=== PATIENT | male | born 1950 | race Caucasian/White ===

== ENCOUNTER → 2024-04-02 10:39 | Outpatient (REF) | payer OTHER, SELFPAY | LOC: RAD 10:39 | PROVIDERS: ATTENDING PHYSICIAN Internal Medicine | DX: K74.69 Other cirrhosis of liver (principal) | CPT/HCPCS: 93970 ==

== ENCOUNTER 2024-05-03 06:27 | Day surgery (SDC) | payer OTHER, SELFPAY ==
[2024-05-03 08:20] LABS: Glucose - Point of Care 106 mg/dl (70-99)
[2024-05-03 08:30] VITALS: BP 132/67
[2024-05-03 08:35] VITALS: BMI 30.9
[2024-05-03 08:36] VITALS: BMI 30.9
[2024-05-03 08:44] VITALS: BMI 30.9
[2024-05-03 09:38] VITALS: BP 118/55
[2024-05-03 09:40] VITALS: BP 118/55
[2024-05-03 09:45] VITALS: BP 119/65
[2024-05-03 10:00] VITALS: BP 103/68
[2024-05-03 10:15] VITALS: BP 123/74
== END 2024-05-03 10:35 | disposition home or self-care (01) ==
LOC: GI 06:27
PROVIDERS: ATTENDING PHYSICIAN Internal Medicine Gastroenterology
DX: K74.60 Unspecified cirrhosis of liver (principal); K76.6 Portal hypertension; K22.89 Other specified disease of esophagus; K31.89 Other diseases of stomach and duodenum; I85.10 Secondary esophageal varices without bleeding; K29.50 Unspecified chronic gastritis without bleeding
CPT/HCPCS: 43239; 88305; 82962

== ENCOUNTER → 2024-06-23 09:45 | Outpatient (REF) | payer OTHER, SELFPAY | LOC: RAD 09:45 | PROVIDERS: ATTENDING PHYSICIAN Nurse Practitioner Family | DX: I50.32 Chronic diastolic (congestive) heart failure (principal) | CPT/HCPCS: 71046 ==

== ENCOUNTER 2024-07-22 12:57 | Inpatient (IN) | payer OTHER, SELFPAY ==
[2024-07-22] VITALS (14 sets, daily range): BP systolic 109–141; BP diastolic 49–90; BMI 32.7; BMI 31.8
[2024-07-22 11:32] LABS: % Basophils 0.6 % (0-2); % Eosinophils 1.4 % (0-6); % Immature Granulocytes 0.2 % (0-0.5); % Lymphocytes 13.2 % (20.5-51.1); % Monocytes 10.7 % (1.7-9.3); % Neutrophils 73.9 % (42.2-75.2); Absolute Eosinophils 0.1 10^3/uL (0-0.7); Absolute Lymphocytes 0.6 10^3/uL (1.2-3.4); Absolute Monocytes 0.5 10^3/uL (0.1-0.6); Absolute Neutrophils 3.6 10^3/uL (1.4-6.5); Hematocrit 43.5 % (39.0-52.0); Hemoglobin 14.8 g/dL (13.0-18.0); Mean Corpuscular Volume 94.2 fL (80.0-94.0); Mean Platelet Volume 11.3 fL (7.4-10.4); Nucleated Red Blood Cells % 0 % (-); Platelet Count 114 10^3/uL (130-400); Red Blood Cell Count 4.62 10^6/uL (4.70-6.10); Red Cell Dist. Width 16.2 % (11.5-14.5); White Blood Cell Count 4.9 10^3/uL (4.8-10.8)
[2024-07-22 11:39] LABS: ALT (SGPT) 24 U/L (0-50); AST (SGOT) 49 U/L (17-59); Albumin 4.1 g/dl (3.5-5.0); Alkaline Phosphatase 138 U/L (38-126); Blood Urea Nitrogen 20 mg/dl (9-20); Calcium 9.6 mg/dl (8.4-10.2); Carbon Dioxide 32 mmol/L (22-30); Chloride 101 mmol/L (98-107); Estimated Creatinine Clearance 73 ml/min; Glucose 66 mg/dl (70-99); Potassium 3.1 mmol/L (3.5-5.1); Sodium 143 mmol/L (135-145); Total Bilirubin 3.3 mg/dl (0.2-1.3); Total Protein 6.8 g/dl (6.3-8.2); eGFR > 60.00
--- NOTE | 2024-07-22 11:44 | ED.GENMED ---
History of Present Illness
General
Chief Complaint: Swelling
Source: patient and physician
Time Seen by Provider: 07/22/24 10:35
History of Present Illness
History of Present Illness:
74-year-old male with past medical history of TIA, atrial fibrillation, hypertension, hyperlipidemia, insulin-dependent diabetes, liver cirrhosis with unknown etiology presenting to the emergency department for evaluation from primary care provider
for worsening lower extremity edema, gradually worsening shortness of breath and weight gain despite being on 60 mg of Lasix twice daily. Patient is scheduled to see cardiology in August for further evaluation is currently not following with
assistant director of residence life here. Reports echocardiogram in the past but this was at an outpatient facility and unknown last echocardiogram. Patient is denying any orthopnea or PND, chest pain, palpitations or diaphoresis. No other concerns at this time
Past History
Past History
ED Past Medical History: Arrthythmia, CVA, HTN, Hypercholesterolemia and IDDM
ED Past Surgical History: Cardiac, Orthopedic and Tonsilectomy
Social History
Tobacco: Former smoker
Alcohol: Daily
Drug: None
Personal:
Living: with family
Family History
Family History: Other
Review of Systems
Review of Systems
All Other Systems: ROS reviewed and negative except as documented in HPI and ROS
Phy Exam
Physical Exam
Physical Exam:
GENERAL: Alert , in no apparent distress
EYE: conjunctiva clear
NECK: Supple, no significant adenopathy.
ENT: o/p clr, mmm.
CARDIAC: Irregular rate and rhythm
LUNGS: Rales bilateral bases, no acute respiratory distress, no tachypnea, no accessory muscle use
NEUROLOGICAL: Alert and oriented
SKIN: Warm and dry, skin intact.
MUSCULOSKELETAL: Significant 4+ pitting edema up to the knees bilateral
PSYCH: Normal and appropriate interaction.
Scores
Heart Failure Risk
Heart Failure Risk Score: Yes
History of Stroke or TIA: Yes
History of intubation for respiratory distress: No
Heart rate on ED arrival >/= 110: No
SaO2 <90% on arrival on room air: No
HR >/=110 during 3min walk test (or too ill to perform test): Yes
ECG has acute ischemic changes: No
Urea >/=12mmol/L (BUN 33.6mg/dL): No
Serum CO2>/=35mmol/L: No
Troponin I or T elevated to [place] Level (0.4mg/dL): No
NT-proBNP >/=5,000ng/L (5,000pg/ml): No
HF Risk Score: 3
Admission Status: HIGH RISK 15.9% Consider SNF treatment or admission to hospital
Heart Score for Chest Pain Patients
STEMI patient?: Not applicable
Withdrawal Assessment of Alcohol
Withdrawal Assessment Completed?: Not applicable
Course
Orders/Labs/Results
Orders:
Orders
07/22/24 Breakfast
2000 calorie (17 carb) Diabetic
At Your Request: Full Participation
Fluid Restriction: 1200 mL/day (40 oz)
Diabetic Diet: Cholesterol Lowering
07/22/24 10:39
Electrocardiogram (*1) Urgent
Reason for Study: Fatigue / Weakness
CR Chest - 2 Views Urgent
Comment:
Reason For Exam: sob
07/22/24 10:40
EKG- Treatment ONCE
BNP [NT-proBNP] Urgent
Complete Blood Count/With Diff Urgent
Comprehensive Metabolic Panel Urgent
Magnesium Urgent
TSH Reflex To Free T4 Urgent
Comment: MAG & TSH REFLEX ADDED ON BY FLOOR 1:30PM 07-22-24
07/22/24 10:52
Urinalysis Reflex To Culture Urgent
Furosemide [Lasix] 60 mg IV NOW STA
07/22/24 11:56
Potassium Chloride [KCl] 40 meq PO NOW STA
07/22/24 11:57
Potassium Chloride [KCl] 40 meq .ROUTE .STK-MED ONE
07/22/24 12:27
Admit/Transfer Patient As Directed
Co-Sign Provider:
Level of Care: Inpatient admission
Assign to:: IVU
Physician / Group: mikaela
Diagnosis: CHF
Reason for Hospitalization: chf
Expected length of stay greater than two midnights?: Yes
ELOS- Estimated Length of Stay in days: 3
I certify the patient meets the requirements for IP care: Yes
Code Status As Directed
Resuscitation Status: Full Code
PRN Pain Medication Management As Directed
May give lesser potent ordered pain med per pt: Yes
preference::
Protocol:: Medication orders for pain may be administered in a
manner that supports deferring to patient preference
when the pt is:
- Requesting an ordered lesser potent pain medication.
Least to most potent pain medications are defined
as: acetaminophen < NSAID < tramadol < opioids
(morphine, oxycodone, hydromorphone).
- Requesting a lesser dose of the same medication IF
ORDERED.
- Requesting a less intrusive route of administration
if both routes are prescribed by the provider (PO <
IV).
07/24/24 11:00
DC Protocol for Telemetry ONCE
Abnormal Lab Results
07/22/24
10:40
RBC 4.62 L 10^6/uL
(4.70-6.10)
MCV 94.2 H fL
(80.0-94.0)
MCH 32.0 H pg
(27.0-31.0)
RDW 16.2 H %
(11.5-14.5)
Plt Count 114 L 10^3/uL
(130-400)
MPV 11.3 H fL
(7.4-10.4)
Absolute Lymphs (auto) 0.6 L 10^3/uL
(1.2-3.4)
Lymphocytes % 13.2 L %
(20.5-51.1)
Monocytes % 10.7 H %
(1.7-9.3)
Potassium 3.1 L mmol/L
(3.5-5.1)
Carbon Dioxide 32 H mmol/L
(22-30)
Glucose 66 L mg/dl
(70-99)
Total Bilirubin 3.3 H mg/dl
(0.2-1.3)
Alkaline Phosphatase 138 H U/L
(38-126)
07/22/24 10:40
07/22/24 10:40
Vital Signs
Initial and Last Documented VS:
Initial Vital Signs
Temp Pulse Resp BP Pulse Ox
97.7 F 51 18 126/64 96
07/22/24 10:10 07/22/24 10:10 07/22/24 10:10 07/22/24 10:10 07/22/24 10:10
Last Documented Vital Signs
Temp Pulse Resp BP Pulse Ox
97.7 F 62 20 117/90 96
07/22/24 10:10 07/22/24 12:15 07/22/24 12:15 07/22/24 11:00 07/22/24 12:15
MDM/Problems Addressed
Differential Diagnosis Includes:
CHF exacerbation, worsening of cirrhosis, valvular dysfunction, cardiac arrhythmia, peripheral vascular disease
MDM/Problems Addressed:
74-year-old male presenting to the emergency department for evaluation at request of PCP for anticipated admission for CHF exacerbation and further workup of worsening edema. Patient does have significant bilateral lower extremity edema, Rales
bilaterally but is in no acute respiratory distress. Labs initiated. 60 mg of Lasix IV ordered. Awaiting labs, chest x-ray and will plan for admission to hospitalist service with cardiology and GI in consult.
Chronic conditions affecting care: Arrhythmia and Other (CHF)
*Radiology
Radiology exam reviewed: preliminary read by ED provider (Bilateral pleural effusions)
*Pulse Oximetry
Patient hypoxic: no
*EKG
Interpreted by ED Provider?: Yes
Comparison EKG: no changes
Heart Rate: 65
Rate: normal
Rhythm: a-fib
QRS Pattern: left bundle branch block
*Sheet Metal Worker Apprentice Interpretation
Rate: normal
Rhythm: a-fib
*Critical Care Note
Total Time (30-74mins, 75-104mins- exclusive of procedures): Not Applicable
Data Reviewed
Review of Other/Old Records Reveals: Labs and Records
Patient Management
Discussion with other providers: Hospitalist
Escalation/DeEscalation of care consider admission/obs:
Hospitalist team notified and accepts for continued evaluation and treatment.
ED Attending Note
-
Portions of this chart may have been created with voice recognition software.� Occasional wrong word or��sound alike� substitutions may have occurred due to the inherent limitations of voice recognition software.
Discharge Plan
Departure
Patient Disposition: Admit
Date of Disposition: 07/22/24
Time of Disposition: 11:57
Presentation/result/management discussed w/ accepting MD/DO: Hospitalist
Discharge Problem:
CHF (congestive heart failure), Hypokalemia
Interventions
Interventions:
*Risk Screen - Suicide Last Done: 07/22/24 10:37
*General Assessment Last Done: 07/22/24 10:10
*Neglect/Abuse Screening Last Done: 07/22/24 10:37
*ED COVID-19 Vaccine History Last Done: 07/22/24 10:10
ED- Cardiac Assessment Last Done: 07/22/24 10:37
ED- Pulmonary Assessment Last Done: 07/22/24 10:37
ED-Skin Assessment Last Done: 07/22/24 10:37
[2024-07-22 11:47] LABS: NT-proBNP 665 pg/ml
[2024-07-22] MEDS: LASIX 60 MG IV ×2 (11:59→17:25)
[2024-07-22] MEDS: KCL 40 MEQ PO ×2 (11:59→17:25)
--- NOTE | 2024-07-22 12:02 | HPS.HSE ---
Addendum entered and electronically signed by Kraig Garcia MD 07/22/24 13:45:
Hx of a heart m for years, a.fib for ~4 yrs and significantly worsening sob and LE edema referred in by PCP. Has appt with Dr. Lowe in ~3 weeks, but symptoms were rapidly worsening
Pt seen independently and agree with SENIOR CLINICAL PROJECT MANAGER note
Lungs bibasilar rales, no wheeze
CV irreg irreg 3/6 m
Abd soft, full
Ext 4+ bilateral pretibial edema with significant stasis dermatitis
Neuro awake, alert, O x3
Imp: acute exac HF of unknown type
Type 2 IDDM
Aortic Sclerosis/stenosis
Atrial Fibrillation with freq PVC's
P: admit to IVU
consult cardio, discussed with Dr. Lorenzo
Echocardiogram
Liver US
Full Code
Original Note:
Family Physician
-
Family Physician: Saud Means
Chief Complaint
-
LE edema
sob
History of Present Illness
74-year-old male with past medical history of TIA, atrial fibrillation, hypertension, hyperlipidemia, insulin-dependent diabetes, liver cirrhosis with unknown etiology presenting to the emergency department for evaluation from primary care provider
for worsening lower extremity edema, gradually worsening shortness of breath and weight gain despite being on40mg three times day. patient been having sob worse with exertion, orthopnea for past three week. stated worsening LE edema as well as
increase in abdominal girth. his PCP bumped his Lasix 40mg bid to TID. stated dry cough. he has weight gain of 12-13 in more than two weeks. he used compression stocking as well as elevated LE with no relief in his symptoms. denied fever, chills,
runny nose, congestion. denied GODFREY,dizzy or syncopal episode. denied dysuria or hematuria. Patient is scheduled to see cardiology in August for further evaluation is currently not following with linux solaris administrator here.
received a dose of Lasix in ER. admitting for further management.
Medical History
Past Medical History
Past Medical History: Reports Other
Additional Past Medical History:
Hypertension
BPH
Type 2 diabetes
Hyperlipidemia
Oral thrush
A-fib
Pulmonary nodules
Coronary artery disease
Pulmonary hypertension
Thyrotoxicosis
Hypothyroidism
COPD
Sleep apnea
Thrombocytopenia
Diastolic CHF cirrhosis of liver
Past Surgical History: Reports Other
Additional Past Surgical History:
Spinal fusion
Left inguinal hernia repair
Laminectomy
Right total knee replacement
Cardiac ablation
Tonsillectomy
Cardioversion
Social History
Tobacco: Former Smoker
Alcohol: Occasional
Drug: None
Personal:
Living: With Family
Family History
Family History: Not pertinent
Allergies / Home Medications
Allergies reflects when Allergies were last updated in [facility].
Home Medications with original date entered in [facility]
Allergy/Medication List:
Allergies
Allergy/AdvReac Type Severity Reaction Status Date / Time
adhesive tape [Adhesive Tape] Allergy Skin Tears Verified 07/22/24 10:13
metformin Allergy Unknown Verified 07/22/24 10:13
quinidine Allergy Diarrhea Verified 07/22/24 10:13
statins Allergy Flu like Uncoded 07/22/24 10:13
symptome
Home Medications
tamsulosin 0.4 mg capsule 1 cap PO DAILY 01/18/14
xgpreqhb-vpo-jdkte acid 0.4 mg-lycopene 300 mcg-lutein 250 mcg tablet (Centrum Silver) 1 ea PO DAILY 01/19/14
Levemir Flexpen: 28 unit SC HS 05/27/18
Loratadine 10 mg PO DAILY 05/27/18
Losartan 25 mg PO BID 05/27/18
Winder-3 Fish Oil 1,200 mg Sfgl 1 tab PO DAILY 05/27/18
metoprolol succinate 25 mg tablet,extended release 24 hr 12.5 mg PO BID 05/27/18
albuterol sulfate 90 mcg/actuation aerosol inhaler (Ventolin HFA) 1 puff inhalation Q6HPRN PRN wheezing ##1 05/30/18
insulin aspart U-100 100 unit/mL (3 mL) subcutaneous pen (Novolog FlexPen U-100 Insulin aspart) 6 units SC AC ##1 05/30/18
Glucosamine Chondroitin 1 tab PO BID 05/03/24
Tylenol PM 2 tab PO HS PRN sleep 05/03/24
apixaban 5 mg tablet (Eliquis) 5 mg PO BID 05/03/24
empagliflozin 25 mg tablet (Jardiance) 12.5 mg PO DAILY 05/03/24
flaxseed 3,000 mg PO DAILY 05/03/24
furosemide 40 mg tablet (Lasix) 40 mg PO TID 05/03/24
losartan 50 mg tablet 50 mg PO DAILY 05/03/24
methocarbamol 750 mg tablet 750 mg PO Q8H PRN muscle spasms 05/03/24
Review of Systems
-
Constitutional: Reports Weight Gain
EENT: Reports No Symptoms
Respiratory: Reports Cough and Trouble Breathing
Cardiac: Reports No Symptoms
Abdomen/GI: Reports No Symptoms
: Reports No Symptoms
Musculoskeletal: Reports Edema (LE )
Skin: Reports No Symptoms
Neurological: Reports No Symptoms
Endocrine: Reports No Symptoms
Hematologic/Lymphatic: Reports No Symptoms
Psych: Reports No Symptoms
Physical Exam
Vital Signs
Vital Signs
Temp Pulse Resp BP Pulse Ox
97.7 F 52 18 126/84 97
07/22/24 10:10 07/22/24 10:45 07/22/24 10:45 07/22/24 10:39 07/22/24 10:45
Physical Exam
General: Well Developed, Well Nourished and No Apparent Distress
HEENT: NormoCephalic, Moist mucous membranes and Atraumatic
Respiratory: Rales
Cardiac: S1/S2 and Regular Rhythm; No Murmur or Rub
GI: Soft, Non Tender, Non Distended and Normal Bowel Sounds; No Organomegaly
Rectal: Deferred by Provider
Musculoskeletal: No Clubbing, No Cyanosis, No Edema and Other (3 edema LE)
Skin: No Rash
Neuro: AO x 3 and Nonfocal/grossly intact
Psych: Calm
Laboratory Results
-
07/22/24 10:40
07/22/24 10:40
Laboratory Results
Total Bilirubin 3.3 mg/dl (0.2-1.3) H 07/22/24 10:40
AST 49 U/L (17-59) 07/22/24 10:40
ALT 24 U/L (0-50) 07/22/24 10:40
Alkaline Phosphatase 138 U/L (38-126) H 07/22/24 10:40
Data Reviewed
-
Diagnostic Radiology: Report Reviewed by me
Lab Data: Labs Reviewed by me
Impression/Plan
-
# Diastolic heart failure exacerbation
-IV Lasix continued
-Received Lasix 60 in ER
-Fluid restriction
-Strict PHOEBE
-Daily weight
-Obtain echocardiogram
-Cardiology consult
-Chest x-ray with impression of Cardiomegaly with mild pulmonary edema, small-moderate left pleural effusion and minimal right pleural effusion, not significantly changed when compared with the prior study
-BNP 665
# Hypokalemia likely from fluid overload/diuretics
-K3.1
-Repleted with oral KCl
#atrial fib paroxysmal
-Heart rate stable in ER
-Eliquis continued
-Metoprolol continued
# BPH
-Flomax continued
# Type 2 diabetes
-blood sugar low in ER
-will hold Lantus, NovoLog
-Jardiance continued
-Sliding scale
-Carb controlled diet
# Essential hypertension
-Losartan continued
# DVT prophylaxis
-Eliquis
# CODE STATUS
-Full code
--- NOTE | 2024-07-22 13:35 | CON.CAR ---
Addendum entered and electronically signed by Juan Lorenzo MD 07/22/24 16:45:
74 yo male with PMH of permanent A fib on eliquis, LBBB, PVC's, DM, chronic HFPEF admitted with weight gain, edema, SOB. No chest pain. Exam with irregular rhythm, no murmurs, 3+ LE edema. Cr 1.0, K 3.1.
Will treat for acute on chronic HFPEF. Continue IV lasix. Replete K. May need to uptitrate lasix dose. Continue jardiance. Check echo.
Rhythm is A fib, slow response, frequent PVC's. Continue Toprol XL and eliquis. Trend tele.
Original Note:
Consultation
Consultation Request
Date/Time Consultation Requested: 07/22/24 1300
Date/Time Consultation Performed: 07/22/24 1320
Requesting Provider: Dr. Garcia
Performing Provider: Yumiko HEARD for Dr. Lorenzo
Reason for Consultation: CHF, arrhythmia
Medical History
-
Chief Complaint: SOB, edema, weight gain
History of Present Illness:
74 y/o male with hypertension, SUREKHA (untreated- he reports he lost weight and no longer snores), permanent AFIB on Eliquis, LBBB, TIA, BPH, liver cirrhosis, DM2, and HFpEF who is here for evaluation of several weeks of SOB, edema, and weight gain
(about 10 lbs) despite increasing lasix from 40 mg PO BID to 40 mg PO TID. He has tried to cut back on fluid intake as well. He is admitted for management of CHF exacerbation. He is in no distress at the time of my assessment. He is a previous
patient of Dr. George, but will be following with Dr. Lowe moving forward.
Past Medical History
Past Medical History: Arrhythmias, CHF, HTN, NIDDM and Other (as above)
Social History
Tobacco: Non-Smoker
Alcohol: Occasional
Family History
Family History: Other (mom had 'angina'- no other details known)
Allergies / Home Medications
Allergy/AdvReac Type Severity Reaction Status Date / Time
adhesive tape [Adhesive Tape] Allergy Skin Tears Verified 07/22/24 10:13
metformin Allergy Unknown Verified 07/22/24 10:13
quinidine Allergy Diarrhea Verified 07/22/24 10:13
statins Allergy Flu like Uncoded 07/22/24 10:13
symptome
�Medication �Instructions �Recorded �Confirmed �Type
tamsulosin 0.4 mg capsule 0.4 mg PO DAILY 01/18/14 07/22/24 History
insulin glargine 100 unit/mL 28 unit SC HS ##0 05/27/18 07/22/24 History
subcutaneous solution (Lantus
U-100 Insulin)
loratadine 10 mg tablet (Claritin) 10 mg PO DAILY ##0 05/27/18 07/22/24 History
metoprolol succinate 25 mg 25 mg PO DAILY 05/27/18 07/22/24 History
tablet,extended release 24 hr
omega-3 fatty acids 1,000 mg PO DAILY ##0 05/27/18 07/22/24 History
insulin aspart U-100 100 unit/mL 6 units SC AC ##1 05/30/18 07/22/24 Rx
(3 mL) subcutaneous pen (Novolog
FlexPen U-100 Insulin aspart)
apixaban 5 mg tablet (Eliquis) 5 mg PO BID 05/03/24 07/22/24 History
diphenhydramine 25 2 tab PO HS 05/03/24 07/22/24 History
mg-acetaminophen 500 mg tablet
(Tylenol PM Extra Strength)
empagliflozin 25 mg tablet 12.5 mg PO DAILY 05/03/24 07/22/24 History
(Jardiance)
flaxseed oil 1,000 mg capsule 3,000 mg PO DAILY 05/03/24 07/22/24 History
furosemide 40 mg tablet (Lasix) 40 mg PO TID 05/03/24 07/22/24 History
glucosamine sulfate dipotassium Cl 1 cap PO DAILY 05/03/24 07/22/24 History
500 mg-chondroitin 400 mg capsule
(Glucosamine Sulfate 2
KCL-Chondroitin)
methocarbamol 750 mg tablet 750 mg PO Q8HPRN PRN muscle spasms 05/03/24 07/22/24 History
Review of Systems
-
History Source: Patient
All other systems: Negative unless noted
Constitutional: Weight Gain
Respiratory: Trouble Breathing
Musculoskeletal: Edema
Physical Exam
Vital Signs
Temp Pulse Resp BP Pulse Ox
97.7 F 62 20 117/90 96
07/22/24 10:10 07/22/24 12:15 07/22/24 12:15 07/22/24 11:00 07/22/24 12:15
Lab Results
07/22/24 10:40
07/22/24 10:40
Kdg-H-Scqyjuvvuim Pept 665 pg/ml 07/22/24 10:40
Physical Exam
General: Well Developed, Well Nourished and No Apparent Distress
HEENT: Normocephalic and Anicteric
Respiratory: Crackles (right base) and Other (diminished left base)
Cardiac: Irregular Rhythm and Peripheral Edema (moderate BLE)
Genito-urinary: Clear Urine
Musculoskeletal: Edema (as above)
Skin: Other (LE's discolored- chronic per patient)
Neuro: AO x 3
Psych: Calm
Impression / Plan
-
Cpsyq-dr-ehetuts HFpEF:
-most recent echo report from [facility]: 02/16/24: Normal LV size, EF 50-55% mild septal dyskinesis with hypokinesis of apical septum, biatrial enlargement, mild to moderate TR, PASP 53 mmHg
-reports dry weight is 205-206 lbs and he is currently 221 in ER. Agree with IV diuresis, which requires intensive monitoring, but we need to be careful since potassium 3.1- being replaced as below.
-needs CHF education- ordered
-limit sodium/fluid
-update echo here
Hypokalemia:
-replaced in ER- will give another dose of potassium today since diuresis is ordered
AFIB: permanent
-patient has history of LBBB and bradycardia per chart, but has tolerated metoprolol at low dose- continue and follow telemetry. Will review EKG and tele with medical pathologist. Denies any dizziness/syncope. No change to chronic palps that he has had
'his whole life'.
-replace potassium, check magnesium and TSH
-continue Eliquis for OAC for [id number] score of at least 7 for age, CHF, HTN, DM, hx TIA per chart
HTN:
-monitor with diuresis
SUREKHA:
-tells me untreated since he lost weight over time and stopped snoring
-should reassess this as OP with PCP
Data Reviewed
-
EKG: Tracing Personally Visualized and interpreted (EKG with AFIB with PVC's and BBB (type unclear)- to review with medical pathologist)
Radiology: Report Reviewed by me
Medical Tests (Nuc Med, Echo etc): Report Reviewed by me (Cardiomegaly with mild pulmonary edema, small-moderate left pleural effusion and minimal right pleural effusion, not significantly changed when compared with the prior study) and Other
(stress testing March 2023- 'evidence of scar')
Labs: Labs Reviewed by me
[2024-07-22 14:05] LABS: Magnesium 2.1 mg/dl (1.6-2.3)
[2024-07-22 14:37] LABS: TSH Reflex To Free T4 0.67 uIU/ml (0.47-4.68)
[2024-07-22 15:59] LABS: Glucose - Point of Care 73 mg/dl (70-99)
[2024-07-22] MEDS: NOVOLOG FLEXPEN-LOW RESISTANCE SC (16:02)
[2024-07-22] MEDS: ELIQUIS 5 MG PO (20:44)
[2024-07-22 21:11] LABS: Glucose - Point of Care 119 mg/dl (70-99)
[2024-07-22 21:59] LABS: Urine Albumin Negative (Neg - Trace); Urine Bilirubin Negative (Negative); Urine Character Clear (Clear); Urine Color Yellow; Urine Glucose 1+ (Negative); Urine Ketone Negative (Negative); Urine Leukocyte Negative (Negative); Urine Nitrite Negative (Negative); Urine Occult Blood Negative (Negative); Urine Urobilinogen Negative (Neg - 1+)
[2024-07-22] MEDS: MAGNESIUM SULFATE 50 IV (22:06)
--- NOTE | 2024-07-22 22:31 | W.PN.UPDATE ---
Update Note
Progress Note Update
-came in to eval pt after noting polymorphic VT (Torsades) on the monitor at 9:48 pm. Pt denies any lightheadedness or CP, wasn't aware of arrhythmia. He's in bed, awake, A&O x3. Pt is in chronic afib with PVCs. Nl EF 50-55%. He is admitted for CHF,
diuresing. K was 3.1 in am and he got 40 bid KCL along with 60 iv bid of Lasix today.
-will check BMP and Mg now
-started 2 gram iv Mg
-reviewed with Dr. Lorenzo - will start Amio bolus and drip
-continue to monitor closely
[2024-07-22] MEDS: TYLENOL 1000 MG PO (22:36)
[2024-07-22] MEDS: BENADRYL 50 MG PO (22:36)
[2024-07-22 22:41] LABS: Blood Urea Nitrogen 18 mg/dl (9-20); Calcium 9.5 mg/dl (8.4-10.2); Carbon Dioxide 29 mmol/L (22-30); Chloride 101 mmol/L (98-107); Estimated Creatinine Clearance 80 ml/min; Glucose 127 mg/dl (70-99); Potassium 3.2 mmol/L (3.5-5.1); Sodium 142 mmol/L (135-145); eGFR > 60.00
[2024-07-22] MEDS: KCL 270 MEQ IV (22:59)
[2024-07-22] MEDS: CORDARONE 103 MG IV (23:01)
[2024-07-22] MEDS: CORDARONE 518 MG IV (23:19)
[2024-07-23] VITALS (13 sets, daily range): BP systolic 116–148; BP diastolic 56–79; PULSE 48–55; O2SAT 95–97; BMI 31.6
--- NOTE | 2024-07-23 03:54 | PTCARENOTE ---
44 - Rec'd pt at change of shift. Pt rec'd on TELE monitor in AFIB with HR controlled in the 60's, multifocal PVCs, and VSS. Pt AAOx3 and denied any pain or palpitations. Voiding w/out difficulty. Urine sample collected and sent to lab per order.
At 21:48 TELE monitor alarmed and rhythm showed torsades. Upon assessment pt sitting on side of bed, instructed patient to lay in bed. Patient assymptomatic and denies any dizziness or palpitations. Pt returned to controlled AFIB after brief
episode. 2L of O2 applied, and sating 97%. Kristine RABAGO notified. See Veronica RABAGO report for further information. IV amiodarone gtt currently infusing per protocol. HR in the 50-60s at rest. PA aware and instructed RN to maintain Amio gtt.
Pt agreed to report any future pain or discomfort to RN immediately. Pt resting with call hawley in reach.
[2024-07-23 05:51] LABS: Hematocrit 41.9 % (39.0-52.0); Hemoglobin 14.4 g/dL (13.0-18.0); Mean Corp Hgb Conc. 34.4 g/dL (33.0-37.0); Mean Corpuscular Hgb 32.3 pg (27.0-31.0); Mean Corpuscular Volume 93.9 fL (80.0-94.0); Mean Platelet Volume 11.2 fL (7.4-10.4); Platelet Count 107 10^3/uL (130-400); Red Blood Cell Count 4.46 10^6/uL (4.70-6.10); Red Cell Dist. Width 16.4 % (11.5-14.5); White Blood Cell Count 4.6 10^3/uL (4.8-10.8)
[2024-07-23 06:03] LABS: ALT (SGPT) 22 U/L (0-50); AST (SGOT) 43 U/L (17-59); Albumin 3.8 g/dl (3.5-5.0); Alkaline Phosphatase 155 U/L (38-126); Blood Urea Nitrogen 19 mg/dl (9-20); Calcium 9.4 mg/dl (8.4-10.2); Carbon Dioxide 29 mmol/L (22-30); Chloride 103 mmol/L (98-107); Direct Bilirubin 0.6 mg/dl (0.0-0.4); Estimated Creatinine Clearance 80 ml/min; Glucose 146 mg/dl (70-99); HDL Cholesterol 43 mg/dl; LDL Cholesterol, Calculated 54 mg/dl; Magnesium 2.4 mg/dl (1.6-2.3); Potassium 3.9 mmol/L (3.5-5.1); Sodium 144 mmol/L (135-145); Total Cholesterol 109 mg/dl (50-199); Total Protein 6.5 g/dl (6.3-8.2); Triglyceride 63 mg/dl (10-149); Very Low Density Lipoprotein 12 mg/dl (0-30); eGFR > 60.00
[2024-07-23 06:06] LABS: Glucose - Point of Care 135 mg/dl (70-99)
[2024-07-23] MEDS: NOVOLOG FLEXPEN-LOW RESISTANCE SC ×3 (06:07→16:52)
[2024-07-23 06:30] LABS: TSH Reflex To Free T4 0.57 uIU/ml (0.47-4.68)
[2024-07-23] MEDS: JARDIANCE 12.5 MG PO (08:18)
[2024-07-23] MEDS: FLOMAX 0.4 MG PO (08:18)
[2024-07-23] MEDS: ELIQUIS 5 MG PO ×2 (08:18→20:43)
[2024-07-23] MEDS: TOPROL XL 25 MG PO (08:19)
[2024-07-23] MEDS: LASIX 60 MG IV ×2 (08:19→16:19)
[2024-07-23] MEDS: FLUSH (NSS) 2 FLUSH IV ×2 (08:20→16:18)
--- NOTE | 2024-07-23 09:00 | PTCARENOTE ---
While assessing the patient I noted wheezing throughout his lungs with BB crackles. I notified the RT and asked for a Xopenex treatment. The RT in to give him his neb.
The patient has no complains of discomfort, SOB, nausea, or vomiting. NSR is noted on the monitor. His vitals are stable and 95% on RA. Heparin gtt is running at 1500 units/hr. His Amiodarone gtt is running at 16.7 ml/hr thru a rt forearm IV. No
redness or discomfort is noted at that site. His left foot dressing is c/d/i.
[2024-07-23 10:09] LABS: Glycohemoglobin (HgbA1c) 5.5 % (4.0-5.6)
[2024-07-23 10:56] LABS: Glucose - Point of Care 117 mg/dl (70-99)
--- NOTE | 2024-07-23 10:59 | W.PN.CD ---
Today's Communication / Plan
-
-
-
Add Aldactone
continue diuresis
Increase metoprolol
Watch tele carefully (recent short run of Torsades)
Consider outpatient amyloid evaluation
-
-
55 min spent caring for pt today, review chart, speak to colleagues, review tele, educate patient, prepare this document
Impression / Plan
-
Zaorm-lj-gveizvl HFpEF:
-Dry/goal weight felt to be 205-206 pounds (93-93.6 kg)
-Weight (07/23/2024) 96.9 kg. Needs more diuresis
-Needs HF education
-Already on Loop diuretic (Lasix 40 TID and Jardiance 2.5 daily at home)
-Add MRA => Aldactone, will need careful f/u of K+/BUN/Cr
-Modest fluid/Na+ restriction
-Consider outpatient Amyloid workup
NSVT and Torsades in setting of hypokalemia (3.1-3.2)
- Received IV Amio
- Stop IV Amio
- Keep K+ normal (over 4 and close to 5 would be appropriate)
- Increase Metprolol
- No syncope or presyncope. Normal LVEF. No role for ICD/EPS at this time
- Monitor with correction of electrolytes/off Amio/more BB
Hypokalemia:
-Added Aldactone for HFpEF and to help K+
-Frequent K+ checks as outpatient
Permanent AFib on chronic Eliquis, metoprolol, rate good (Afib ablations 2006 and 2013 but in AFib for almost 10 yrs now)
HTN
DM
SUREKHA
Subjective:
Feels better
Data:
Echo 07/22/2024: LVEF 50-55%, mild/mod TR, est PASP 59 mmHg, est RA 15 mmHg,
Echo ([facility]) 02/16/24: Normal LV size, EF 50-55% mild septal dyskinesis with hypokinesis of apical septum, biatrial enlargement, mild to moderate TR, PASP 53 mmHg
Physical Exam
Vital Signs/Labs
Vital Signs
Temp Pulse Resp BP Pulse Ox
97.8 F 62 16 136/67 96
07/23/24 07:01 07/23/24 08:19 07/23/24 07:01 07/23/24 07:04 07/23/24 07:01
07/22/24 07/23/24 07/24/24
06:59 06:59 06:59
Actual Weight 96.9 kg
07/23/24 05:11
07/23/24 05:11
Magnesium 2.4 mg/dl (1.6-2.3) H 07/23/24 05:11
Triglycerides 63 mg/dl (10-149) 07/23/24 05:11
LDL Cholesterol, Calc 54 mg/dl 07/23/24 05:11
VLDL Cholesterol, Calc 12 mg/dl (0-30) 07/23/24 05:11
HDL Cholesterol 43 mg/dl 07/23/24 05:11
07/22/24
10:40
Pnf-D-Hpnkkbhfzzf Pept 665
Physical Exam
Constitutional: No acute distress
EENT: Anicteric
Cardiovascular: Rhythm/rate is irregular and S1S2 is normal
Respiratory: Respiratory effort normal and Lungs clear to auscul.
GI: Soft and Distention absent
Neuro/Psych: Alert
Data Reviewed
-
Date of Service: July 23, 2024
[2024-07-23] MEDS: ALDACTONE 25 MG PO (11:22)
--- NOTE | 2024-07-23 11:58 | CM ---
Chart reviewed. Patient is independent of ADLS, lives with his in a [address], 1 [facility], ambulates with a SPC and RW. Plan is for the patient to return home. CM to follow
--- NOTE | 2024-07-23 14:03 | W.PN.HOSP.TC ---
Today's Communication/Plan
-
continue IV Lasix and medication adjustments
Assessment / Plan
Assessment / Plan
Assessment:
Acute on chronic HFpEF
- continue IV Lasix - requires intensive monitoring of I/Os, weights, lytes
- Dry/goal weight felt to be 205-206 pounds (93-93.6 kg)
- OFR/Na+ restrictions
- continue GDMT Jardiance, Aldactone, BB
- Echo: Normal biventricular size and systolic function. Estimated LVEF 50-55%. Aortic sclerosis without stenosis. Filamentous echodensity consistent with Lambl's excrescence. Mild/moderate tricuspid regurgitation. Severely elevated PASP. Estimated
pulmonary artery pressure of 59 mmHg. Assuming a right atrial pressure of 15 mmHg. Compared to echo report 02/16/24: no significant change.
Hypokalemia
- replete prn
NSVT
Brief Torsades
- s/p IV Amiodarone
- keep K>4, mag >2
- continue BB
Permanent A. Fib (hx of Ablation 2006, 2013)
- continue Eliquis/BB
Essential HTN
- continue BP meds
DM
- continue Jardiance
- holding basal/bolus regimen
- continue SSI
- A1c is 5.5%
SUREKHA
BPH - continue Flomax
DVT ppx: Eliquis
Code: Full
Anticipated Discharge: 24 - 48 hours
Subjective/Interval History
-
Date of Service: July 23, 2024
continues to improve
Objective Data
-
Labs:
Laboratory Results
07/23/24
05:11
WBC 4.6 L
Hgb 14.4
Hct 41.9
Plt Count 107 L
Sodium 144
Potassium 3.9
Chloride 103
Carbon Dioxide 29
BUN 19
Creatinine 0.9
Glucose 146 H
Calcium 9.4
Total Bilirubin 3.0 H
AST 43
ALT 22
Alkaline Phosphatase 155 H
Vital Signs:
Vital Signs
Temp Pulse Resp BP Pulse Ox
97.8 F 56 16 132/72 97
07/23/24 07:01 07/23/24 11:27 07/23/24 11:27 07/23/24 11:27 07/23/24 11:27
I&O
07/22/24 07/23/24 07/24/24
06:59 06:59 06:59
Intake Total 1040 / 1040
Output Total 2400 / 2400 650 / 650
Balance -1360 / -1360 -650 / -650
Physical Exam
-
General: No Apparent Distress
HEENT: Normocephalic and Atraumatic
Respiratory: Negative Wheezes
Cardiac: S1/S2 and Irregular Rhythm
Neuro: AO x 3
Hematologic / Lymphatic: No Lymphadenopathy
Psych: Calm
Data Reviewed
-
Total Time Spent with Patient (in minutes): 51
Labs: Labs Reviewed by me
--- NOTE | 2024-07-23 14:28 | PTCARENOTE ---
The patient's HR dropped to the high 40s while at rest. The patient has been asymptomatic, 25 mg of metoprolol given this am. His HR increases to the 50s-60s with ambulation. Notified Ilda Mireles.
[2024-07-23 16:47] LABS: Glucose - Point of Care 132 mg/dl (70-99)
[2024-07-23] MEDS: MIRALAX 17 GRAMS PO (17:54)
[2024-07-23] MEDS: SENOKOT 8.6 MG PO (20:43)
[2024-07-23 21:51] LABS: Glucose - Point of Care 121 mg/dl (70-99)
[2024-07-23] MEDS: BENADRYL 50 MG PO (21:56)
[2024-07-23] MEDS: TYLENOL 1000 MG PO (21:56)
--- NOTE | 2024-07-23 23:30 | PTCARENOTE ---
23:19 Amio gtt d/c and INT removed. Pt remained in AFib with PVCs HR 46. Pt denies any discomfort. Resting comfortable.
[2024-07-24] VITALS (7 sets, daily range): BP systolic 109–147; BP diastolic 54–76; BMI 31.2
[2024-07-24 04:27] LABS: Hematocrit 39.7 % (39.0-52.0); Hemoglobin 13.8 g/dL (13.0-18.0); Mean Corp Hgb Conc. 34.8 g/dL (33.0-37.0); Mean Corpuscular Hgb 31.7 pg (27.0-31.0); Mean Corpuscular Volume 91.3 fL (80.0-94.0); Mean Platelet Volume 10.9 fL (7.4-10.4); Platelet Count 108 10^3/uL (130-400); Red Blood Cell Count 4.35 10^6/uL (4.70-6.10); Red Cell Dist. Width 16.5 % (11.5-14.5); White Blood Cell Count 4.5 10^3/uL (4.8-10.8)
[2024-07-24 04:34] LABS: Blood Urea Nitrogen 24 mg/dl (9-20); Calcium 9.6 mg/dl (8.4-10.2); Carbon Dioxide 31 mmol/L (22-30); Chloride 102 mmol/L (98-107); Estimated Creatinine Clearance 72 ml/min; Glucose 117 mg/dl (70-99); Potassium 3.5 mmol/L (3.5-5.1); Sodium 143 mmol/L (135-145); eGFR > 60.00
--- NOTE | 2024-07-24 04:45 | PTCARENOTE ---
Pt with run of SVT 11 beats. [facility] ROUTEMAN made aware, potassium x 1 dose ordered for K 3.5
[2024-07-24 04:59] LABS: Magnesium 2.2 mg/dl (1.6-2.3)
[2024-07-24] MEDS: KCL 20 MEQ PO ×2 (05:25→21:08)
[2024-07-24 07:18] LABS: Glucose - Point of Care 109 mg/dl (70-99)
[2024-07-24] MEDS: NOVOLOG FLEXPEN-LOW RESISTANCE SC ×3 (07:18→16:34)
[2024-07-24] MEDS: FLOMAX 0.4 MG PO (08:32)
[2024-07-24] MEDS: SENOKOT PO ×3 (08:32→20:15)
[2024-07-24] MEDS: LASIX 60 MG IV ×2 (08:32→16:17)
[2024-07-24] MEDS: ALDACTONE 25 MG PO (08:32)
[2024-07-24] MEDS: MIRALAX 17 GRAMS PO (08:32)
[2024-07-24] MEDS: JARDIANCE 12.5 MG PO (08:32)
[2024-07-24] MEDS: ELIQUIS 5 MG PO ×2 (08:32→20:15)
[2024-07-24] MEDS: FLUSH (NSS) 2 FLUSH IV ×2 (08:34→16:17)
--- NOTE | 2024-07-24 08:35 | PTCARENOTE ---
HR 46, metoprolol held per order.
--- NOTE | 2024-07-24 09:36 | W.PN.CD ---
Today's Communication / Plan
-
- K supplement
- Telemetry
- If bradycardia becomes more symptomatic, will reduce BB again.
- Possible ICD on Friday
Impression / Plan
-
Mazkg-wt-hvncnjx HFpEF:
-Dry/goal weight felt to be 205-206 pounds (93-93.6 kg)
-Weight (07/24/2024) 95.8 kg. still needs more diuresis but BUN/Cr has started to rise.
-Needs HF education
-Already on Loop diuretic (Lasix 40 TID and Jardiance 2.5 daily at home)
-Started on MRA => Aldactone on 07/23, will need careful f/u of K+/BUN/Cr
-Modest fluid/Na+ restriction
-Consider outpatient Amyloid workup
NSVT and Torsades in setting of hypokalemia (3.1-3.2)
- Received IV Amio
- Still hypokalemic
- Frequent PVCs and NSVT
- Keep K+ normal (over 4 and close to 5 would be appropriate)
- Increased Metoprolol
- Significant bradycardiac now. heart rate in 40s to 50s. QTc is long.
- With bradycardia and long QT, BB may not be enough. May need atrial pacing to shorten the QTc and ICD for VT/VF treatment.
- No syncope or presyncope. Normal LVEF. No role for ICD/EPS at this time
- Monitor with correction of electrolytes/off Amio/more BB
- Evaluate over the weekend for need for ICD.
Hypokalemia:
-Added Aldactone for HFpEF and to help K+
-Frequent K+ checks as outpatient
Permanent AFib on chronic Eliquis, metoprolol, rate good (Afib ablations 2006 and 2013 but in AFib for almost 10 yrs now)
HTN
DM
SUREKHA
Subjective:
fatigued and dyspnea on exertion. denies any chest pain.
Data:
Echo 07/22/2024: LVEF 50-55%, mild/mod TR, est PASP 59 mmHg, est RA 15 mmHg,
Echo ([facility]) 02/16/24: Normal LV size, EF 50-55% mild septal dyskinesis with hypokinesis of apical septum, biatrial enlargement, mild to moderate TR, PASP 53 mmHg
Physical Exam
Vital Signs/Labs
Vital Signs
Temp Pulse Resp BP Pulse Ox
97.9 F 46 18 128/60 98
07/24/24 07:14 07/24/24 08:34 07/24/24 07:14 07/24/24 07:15 07/24/24 07:14
07/23/24 07/24/24 07/25/24
06:59 06:59 06:59
Actual Weight 96.9 kg 95.8 kg
07/24/24 03:50
07/24/24 03:50
Magnesium 2.2 mg/dl (1.6-2.3) 07/24/24 03:50
Triglycerides 63 mg/dl (10-149) 07/23/24 05:11
LDL Cholesterol, Calc 54 mg/dl 07/23/24 05:11
VLDL Cholesterol, Calc 12 mg/dl (0-30) 07/23/24 05:11
HDL Cholesterol 43 mg/dl 07/23/24 05:11
07/22/24
10:40
Men-G-Smxgwbkwwbb Pept 665
Physical Exam
Constitutional: No acute distress and Comfortable
EENT: Anicteric and Moist mucous membranes
Cardiovascular: Rhythm/rate is irregular (sinus rafi with frequent PVCs and NSVT) and Systolic murmur present
Respiratory: Respiratory effort normal, Wheeze Absent and Crackles Absent
GI: Soft, Distention absent and Non tender
Neuro/Psych: Alert, Oriented and AO x 3
Data Reviewed
-
Date of Service: July 24, 2024
Medical Decision Making: Reviewed Test Results and Independent Historian Assessment
EKG: Tracing Personally Visualized and interpreted
Echo: Report Reviewed by me
X-Ray/CT/US/MRI/NUC/PET: Image Personally Visualized and interpreted
Labs: Labs Reviewed by me
Old Records: Reviewed
[2024-07-24] MEDS: KCL 40 MEQ PO (12:07)
--- NOTE | 2024-07-24 12:28 | W.PN.HOSP.TC ---
Today's Communication/Plan
-
may need to consider ICD if ectopy continues
continue current meds
continue IV Lasix
Assessment / Plan
Assessment / Plan
Assessment:
Acute on chronic HFpEF
- continue IV Lasix - requires intensive monitoring of I/Os, weights, lytes
- Dry/goal weight felt to be 205-206 pounds (93-93.6 kg)
- OFR/Na+ restrictions
- continue GDMT Jardiance, Aldactone, BB
- Echo: Normal biventricular size and systolic function. Estimated LVEF 50-55%. Aortic sclerosis without stenosis. Filamentous echodensity consistent with Lambl's excrescence. Mild/moderate tricuspid regurgitation. Severely elevated PASP. Estimated
pulmonary artery pressure of 59 mmHg. Assuming a right atrial pressure of 15 mmHg. Compared to echo report 02/16/24: no significant change.
Hypokalemia
- replete prn
NSVT
Brief Torsades in setting of hypokalemia
- tele with ongoing PVCs and NSVT
- s/p IV Amiodarone
- keep K>4, mag >2
- continue BB
- may need to consider ICD
Permanent A. Fib (hx of Ablation 2006, 2013)
- continue Eliquis/BB
Essential HTN
- continue BP meds
DM
- continue Jardiance
- holding basal/bolus regimen
- continue SSI
- A1c is 5.5%
SUREKHA
BPH - continue Flomax
DVT ppx: Eliquis
Code: Full
Anticipated Discharge: 24 - 48 hours
Subjective/Interval History
-
Date of Service: July 24, 2024
remains SOB with exertion
weight improving
no CP
Objective Data
-
Labs:
Laboratory Results
08/24/24
03:50
WBC 4.5 L
Hgb 13.8
Hct 39.7
Plt Count 108 L
Sodium 143
Potassium 3.5
Chloride 102
Carbon Dioxide 31 H
BUN 24 H
Creatinine 1.0
Glucose 117 H
Calcium 9.6
Vital Signs:
Vital Signs
Temp Pulse Resp BP Pulse Ox
97.4 F 50 18 109/76 93
07/24/24 11:12 07/24/24 11:11 07/24/24 11:12 07/24/24 11:11 07/24/24 11:12
I&O
07/23/24 07/24/24 07/25/24
06:59 06:59 06:59
Intake Total 1040 / 1040 674 / 674 480 / 480
Output Total 2400 / 2400 1800 / 1800 650 / 650
Balance -1360 / -1360 -1126 / -1126 -170 / -170
Physical Exam
-
General: No Apparent Distress
HEENT: Normocephalic and Atraumatic
Respiratory: Negative Wheezes
Cardiac: Regular Rhythm and S1/S2
GI: Soft
Genito-urinary: No Costovertebral Tender
Musculoskeletal: No Edema
Neuro: AO x 3
Hematologic / Lymphatic: No Lymphadenopathy
Psych: Calm
Data Reviewed
-
Total Time Spent with Patient (in minutes): 51
Labs: Labs Reviewed by me
[2024-07-24 12:34] LABS: Glucose - Point of Care 112 mg/dl (70-99)
--- NOTE | 2024-07-24 16:25 | PTCARENOTE ---
The patient has 3 loose BMs since taking Miralax and Senokot today. He stated that he does not want any more laxatives.
[2024-07-24 16:30] LABS: Glucose - Point of Care 93 mg/dl (70-99)
--- NOTE | 2024-07-24 18:36 | PTCARENOTE ---
The patient has been oob all shift. He walked in the halls multiple times. His vital signs have been stable. Afib with a SVR has been noted on the monitor, Frequent PVC noted in addition to bigeminy. He remains asymptomatic.
[2024-07-24 20:35] LABS: Blood Urea Nitrogen 23 mg/dl (9-20); Calcium 9.4 mg/dl (8.4-10.2); Carbon Dioxide 33 mmol/L (22-30); Chloride 99 mmol/L (98-107); Estimated Creatinine Clearance 65 ml/min; Glucose 166 mg/dl (70-99); Potassium 3.5 mmol/L (3.5-5.1); Sodium 142 mmol/L (135-145); eGFR > 60.00
[2024-07-24 21:04] LABS: Glucose - Point of Care 164 mg/dl (70-99)
[2024-07-24] MEDS: TYLENOL 1000 MG PO (22:16)
[2024-07-24] MEDS: BENADRYL 50 MG PO (22:16)
[2024-07-25] VITALS (8 sets, daily range): BP systolic 115–138; BP diastolic 56–82; BMI 30.3
--- NOTE | 2024-07-25 00:47 | PTCARENOTE ---
Potassium from 1999 BMP 3.5; pt. remains in A-fib 50's-60's with frequent PVC's. Hospitalist ORQUIDEA Purcell notified, order for KCL 20 mEq PO obtained and administered. Otherwise pt. has no complaints, RA pulse ox 94% with some RODRIGUEZ assessed but pt.
recovers quickly; lungs diminished. Voiding clear yellow urine without difficulty. Pt. currently sleeping.
[2024-07-25 05:04] LABS: Hematocrit 40.7 % (39.0-52.0); Mean Corp Hgb Conc. 34.4 g/dL (33.0-37.0); Mean Corpuscular Hgb 32.4 pg (27.0-31.0); Mean Corpuscular Volume 94.2 fL (80.0-94.0); Mean Platelet Volume 10.7 fL (7.4-10.4); Platelet Count 102 10^3/uL (130-400); Red Blood Cell Count 4.32 10^6/uL (4.70-6.10); Red Cell Dist. Width 16.2 % (11.5-14.5)
[2024-07-25 05:48] LABS: Blood Urea Nitrogen 23 mg/dl (9-20); Calcium 9.5 mg/dl (8.4-10.2); Carbon Dioxide 30 mmol/L (22-30); Chloride 103 mmol/L (98-107); Estimated Creatinine Clearance 71 ml/min; Glucose 113 mg/dl (70-99); Magnesium 2.1 mg/dl (1.6-2.3); Potassium 3.9 mmol/L (3.5-5.1); Sodium 143 mmol/L (135-145); eGFR > 60.00
[2024-07-25 07:13] LABS: Glucose - Point of Care 115 mg/dl (70-99)
[2024-07-25] MEDS: NOVOLOG FLEXPEN-LOW RESISTANCE SC ×3 (07:28→17:39)
[2024-07-25] MEDS: JARDIANCE 12.5 MG PO (07:58)
[2024-07-25] MEDS: FLOMAX 0.4 MG PO (07:58)
[2024-07-25] MEDS: ELIQUIS 5 MG PO ×2 (07:59→20:44)
[2024-07-25] MEDS: ALDACTONE 25 MG PO (07:59)
[2024-07-25] MEDS: SENOKOT PO ×3 (08:00→20:46)
[2024-07-25] MEDS: MIRALAX PO (08:00)
--- NOTE | 2024-07-25 08:03 | PTCARENOTE ---
Metoprol held this morning due to HR parameters. HR 55.
--- NOTE | 2024-07-25 08:27 | W.PN.CD ---
Today's Communication / Plan
-
-N.p.o. after midnight
-Dual-chamber ICD tomorrow
Impression / Plan
-
Fzgvl-ng-endgbyt HFpEF:
-Dry/goal weight felt to be 205-206 pounds (93-93.6 kg)
-Weight (07/24/2024) 95.8 kg. still needs more diuresis but BUN/Cr has started to rise.
-Needs HF education
-Already on Loop diuretic (Lasix 40 TID and Jardiance 2.5 daily at home)
-Started on MRA => Aldactone on 07/23, will need careful f/u of K+/BUN/Cr
-Modest fluid/Na+ restriction
-Consider outpatient Amyloid workup
NSVT and Torsades in setting of hypokalemia (3.1-3.2)
- Received IV Amio
- K is better with continued severe bradycardia, frequent PVCs and nonsustained VT.
- Frequent PVCs and NSVT
- Keep K+ normal (over 4 and close to 5 would be appropriate)
- Increased Metoprolol
- Significant bradycardiac now. heart rate in 40s to 50s. QTc is long.
- With bradycardia and long QT, BB may not be enough. May need atrial pacing to shorten the QTc and ICD for VT/VF treatment.
- No syncope or presyncope. Normal LVEF. No role for ICD/EPS at this time
- Monitor with correction of electrolytes/off Amio/more BB
- Will need dual chamber ICD.
Hypokalemia:
-Added Aldactone for HFpEF and to help K+
-Frequent K+ checks as outpatient
Permanent AFib on chronic Eliquis, metoprolol, rate good (Afib ablations 2006 and 2013 but in AFib for almost 10 yrs now)
HTN
DM
SUREKHA
Subjective:
fatigued and dyspnea on exertion. denies any chest pain. Agreeable and wants to proceed and get ICD in place
Data:
Echo 07/22/2024: LVEF 50-55%, mild/mod TR, est PASP 59 mmHg, est RA 15 mmHg,
Echo ([facility]) 02/16/24: Normal LV size, EF 50-55% mild septal dyskinesis with hypokinesis of apical septum, biatrial enlargement, mild to moderate TR, PASP 53 mmHg
Physical Exam
Vital Signs/Labs
Vital Signs
Temp Pulse Resp BP Pulse Ox
97.8 F 55 18 123/56 98
07/25/24 07:40 07/25/24 07:59 07/25/24 07:40 07/25/24 07:40 07/25/24 07:40
07/24/24 07/25/24 07/26/24
06:59 06:59 06:59
Actual Weight 95.8 kg 93.1 kg
07/25/24 04:33
07/25/24 04:33
Magnesium 2.1 mg/dl (1.6-2.3) 07/25/24 04:33
Triglycerides 63 mg/dl (10-149) 07/23/24 05:11
LDL Cholesterol, Calc 54 mg/dl 07/23/24 05:11
VLDL Cholesterol, Calc 12 mg/dl (0-30) 07/23/24 05:11
HDL Cholesterol 43 mg/dl 07/23/24 05:11
07/22/24
10:40
Zqe-A-Enpuzzuwobm Pept 665
Physical Exam
Constitutional: No acute distress and Comfortable
EENT: Anicteric and Moist mucous membranes
Cardiovascular: Rhythm/rate is irregular, Pedal edema present, JVD present and Systolic murmur present
Respiratory: Respiratory effort normal and Crackles Present
GI: Soft, Distention absent, Non tender and Normal bowel sounds
Neuro/Psych: Alert, Oriented and AO x 3
Data Reviewed
-
Date of Service: July 25, 2024
Medical Decision Making: Reviewed Test Results, Independent Historian Assessment, Test Interpretation and Review of Case with other Provider
EKG: Tracing Personally Visualized and interpreted
Echo: Report Reviewed by me
Labs: Labs Reviewed by me
Old Records: Reviewed
[2024-07-25] MEDS: LASIX IV (09:15)
[2024-07-25 12:59] LABS: Glucose - Point of Care 100 mg/dl (70-99)
--- NOTE | 2024-07-25 13:12 | W.PN.HOSP.TC ---
Today's Communication/Plan
-
NPO p MN for ICD placement
holding Lasix per Cardiology
Assessment / Plan
Assessment / Plan
Assessment:
Acute on chronic HFpEF
- IV Lasix held for today by Cardiology
- Dry/goal weight felt to be 205-206 pounds (93-93.6 kg)
- OFR/Na+ restrictions
- continue GDMT Jardiance, Aldactone, BB
- Echo: Normal biventricular size and systolic function. Estimated LVEF 50-55%. Aortic sclerosis without stenosis. Filamentous echodensity consistent with Lambl's excrescence. Mild/moderate tricuspid regurgitation. Severely elevated PASP. Estimated
pulmonary artery pressure of 59 mmHg. Assuming a right atrial pressure of 15 mmHg. Compared to echo report 02/16/24: no significant change.
Hypokalemia
- replete prn
NSVT
Brief Torsades in setting of hypokalemia
- tele with ongoing PVCs and NSVT
- s/p IV Amiodarone
- keep K>4, mag >2
- continue BB
- dual chambed ICD planned 07/26
Permanent A. Fib (hx of Ablation 2006, 2013)
- continue Eliquis/BB
Essential HTN
- continue BP meds
DM
- continue Jardiance
- holding basal/bolus regimen
- continue SSI
- A1c is 5.5%
SUREKHA
BPH - continue Flomax
DVT ppx: Eliquis
Code: Full
Anticipated Discharge: > 48 hours
Subjective/Interval History
-
Date of Service: July 25, 2024
denies any new complaints
Objective Data
-
Labs:
Laboratory Results
07/25/24
04:33
WBC 4.0 L
Hgb 14.0
Hct 40.7
Plt Count 102 L
Sodium 143
Potassium 3.9
Chloride 103
Carbon Dioxide 30
BUN 23 H
Creatinine 1.0
Glucose 113 H
Calcium 9.5
Vital Signs:
Vital Signs
Temp Pulse Resp BP Pulse Ox
97.2 F 53 20 138/61 98
07/25/24 11:44 07/25/24 12:00 07/25/24 11:44 07/25/24 11:46 07/25/24 11:44
I&O
07/24/24 07/25/24 07/26/24
06:59 06:59 06:59
Intake Total 674 / 674 1320 / 1320 360 / 360
Output Total 1800 / 1800 2450 / 2450 450 / 450
Balance -1126 / -1126 -1130 / -1130 -90 / -90
Physical Exam
-
General: No Apparent Distress
HEENT: Normocephalic and Atraumatic
Respiratory: Negative Wheezes
Cardiac: Regular Rhythm and S1/S2
GI: Soft
Neuro: AO x 3
Psych: Calm
Data Reviewed
-
Total Time Spent with Patient (in minutes): 42
Labs: Labs Reviewed by me
[2024-07-25 17:13] LABS: Glucose - Point of Care 139 mg/dl (70-99)
[2024-07-25 21:29] LABS: Glucose - Point of Care 169 mg/dl (70-99)
[2024-07-25] MEDS: TYLENOL 1000 MG PO (21:54)
[2024-07-25] MEDS: BENADRYL 50 MG PO (21:54)
[2024-07-26] VITALS (13 sets, daily range): BP systolic 102–132; BP diastolic 54–95; BMI 30.6
--- NOTE | 2024-07-26 02:08 | PTCARENOTE ---
Rec'd pt at 1900 on TELE monitor with pt in AFIB w/ BBB and frequent PVCs with HR controlled in the 60's and vital signs stable (see flowchart). Pt AAOx3 and denies any pain or discomfort. Pt agreed to report any change in pain or discomfort to RN
immediately. Patient aware to remain NPO status for planned AICD placement in AM. Pt resting with call hawley in reach.
[2024-07-26 02:57] LABS: Hematocrit 40.8 % (39.0-52.0); Hemoglobin 13.8 g/dL (13.0-18.0); Mean Corp Hgb Conc. 33.8 g/dL (33.0-37.0); Mean Corpuscular Volume 94.7 fL (80.0-94.0); Mean Platelet Volume 10.7 fL (7.4-10.4); Platelet Count 97 10^3/uL (130-400); Red Blood Cell Count 4.31 10^6/uL (4.70-6.10); Red Cell Dist. Width 16.1 % (11.5-14.5); White Blood Cell Count 4.2 10^3/uL (4.8-10.8)
[2024-07-26 03:07] LABS: Blood Urea Nitrogen 22 mg/dl (9-20); Calcium 9.7 mg/dl (8.4-10.2); Carbon Dioxide 30 mmol/L (22-30); Chloride 103 mmol/L (98-107); Estimated Creatinine Clearance 71 ml/min; Glucose 156 mg/dl (70-99); Potassium 3.8 mmol/L (3.5-5.1); Sodium 142 mmol/L (135-145); eGFR > 60.00
[2024-07-26 06:04] LABS: Glucose - Point of Care 123 mg/dl (70-99)
[2024-07-26] MEDS: NOVOLOG FLEXPEN-LOW RESISTANCE SC ×3 (06:19→17:14)
[2024-07-26] MEDS: JARDIANCE 12.5 MG PO (08:49)
[2024-07-26] MEDS: FLOMAX 0.4 MG PO (08:49)
[2024-07-26] MEDS: ELIQUIS PO (08:49)
[2024-07-26] MEDS: MIRALAX PO (08:50)
[2024-07-26] MEDS: ALDACTONE 25 MG PO (08:50)
[2024-07-26] MEDS: SENOKOT PO ×2 (08:50→19:50)
[2024-07-26] MEDS: FLUSH (NSS) 2 FLUSH IV (08:51)
--- NOTE | 2024-07-26 10:11 | W.PN.HOSP.TC ---
Today's Communication/Plan
-
IV potassium to keep >4
dual chamber ICD planned today
Assessment / Plan
Assessment / Plan
Assessment:
Acute on chronic HFpEF
- IV Lasix on hold per Cardiology
- Dry/goal weight felt to be 205-206 pounds (93-93.6 kg)
- OFR/Na+ restrictions
- continue GDMT Jardiance, Aldactone, BB
- Echo: Normal biventricular size and systolic function. Estimated LVEF 50-55%. Aortic sclerosis without stenosis. Filamentous echodensity consistent with Lambl's excrescence. Mild/moderate tricuspid regurgitation. Severely elevated PASP. Estimated
pulmonary artery pressure of 59 mmHg. Assuming a right atrial pressure of 15 mmHg. Compared to echo report 02/16/24: no significant change.
Hypokalemia
- replete prn
NSVT
Brief Torsades in setting of hypokalemia
- tele with ongoing PVCs and NSVT
- s/p IV Amiodarone
- keep K>4, mag >2
- continue BB
- dual chamber ICD planned today
Permanent A. Fib (hx of Ablation 2006, 2013)
- continue Eliquis/BB
Essential HTN
- continue BP meds
DM
- continue Jardiance
- holding basal/bolus regimen
- continue SSI
- A1c is 5.5%
SUREKHA
BPH - continue Flomax
DVT ppx: Eliquis
Code: Full
Anticipated Discharge: 24 - 48 hours
Subjective/Interval History
-
Date of Service: July 26, 2024
denies any new complaints at present
for ICD placement today
Objective Data
-
Labs:
Laboratory Results
07/26/24
02:40
WBC 4.2 L
Hgb 13.8
Hct 40.8
Plt Count 97 L
Sodium 142
Potassium 3.8
Chloride 103
Carbon Dioxide 30
BUN 22 H
Creatinine 1.0
Glucose 156 H
Calcium 9.7
Vital Signs:
Vital Signs
Temp Pulse Resp BP Pulse Ox
97.6 F 57 16 132/66 93
07/26/24 07:13 07/26/24 08:50 07/26/24 07:13 07/26/24 07:17 07/26/24 07:13
I&O
07/25/24 07/26/24 07/27/24
06:59 06:59 06:59
Intake Total 1320 / 1320 1300 / 1300
Output Total 2450 / 2450 750 / 750
Balance -1130 / -1130 550 / 550
Physical Exam
-
General: No Apparent Distress
HEENT: Normocephalic and Atraumatic
Respiratory: Negative Wheezes
Cardiac: Regular Rhythm and S1/S2
GI: Soft
Genito-urinary: No Costovertebral Tender
Neuro: AO x 3
Psych: Calm
Data Reviewed
-
Total Time Spent with Patient (in minutes): 42
Labs: Labs Reviewed by me
[2024-07-26] MEDS: KCL 270 MEQ IV (11:33)
[2024-07-26] MEDS: FLUSH (NSS) 1 FLUSH IV (11:34)
[2024-07-26 11:51] LABS: Glucose - Point of Care 102 mg/dl (70-99)
--- NOTE | 2024-07-26 12:57 | W.ICD.CONTRA ---
Post ICD/WEIGHT CHECKER-D
-
History of AL?: No
LV Function
Left ventricular function study result?: Ejection Fraction >/= 40%
ACEI/ARB/ARNI
Patient already on ACEI/ARB/ARNI: No
ACEI/ARB/ARNI Not Indicated: Left Ventricular EF >/= 40%
Beta-Ching
Patient already on Beta Ching: Yes
--- NOTE | 2024-07-26 13:00 | CM ---
Chart reviewed. Patient is independent of ADLS, lives with his in a [address], [address] [facility], ambulates with a SPC and RW. Patient waiting for his ICD. Plan is for the patient to return home. CM to follow
--- NOTE | 2024-07-26 14:06 | W.PN.CD ---
Today's Communication / Plan
-
- Dual chamber ICD this AM
Impression / Plan
-
Cngjw-li-bghsbey HFpEF:
-Dry/goal weight felt to be 205-206 pounds (93-93.6 kg)
-Weight (07/24/2024) 95.8 kg. still needs more diuresis but BUN/Cr has started to rise.
-Needs HF education
-Already on Loop diuretic (Lasix 40 TID and Jardiance 2.5 daily at home)
-Started on MRA => Aldactone on 07/23, will need careful f/u of K+/BUN/Cr
-Modest fluid/Na+ restriction
-Consider outpatient Amyloid workup
NSVT and Torsades in setting of hypokalemia (3.1-3.2)
- Received IV Amio
- K is better with continued severe bradycardia, frequent PVCs and nonsustained VT.
- Frequent PVCs and NSVT
- Keep K+ normal (over 4 and close to 5 would be appropriate)
- Increased Metoprolol
- Significant bradycardiac now. heart rate in 40s to 50s. QTc is long.
- With bradycardia and long QT, BB may not be enough. May need atrial pacing to shorten the QTc and ICD for VT/VF treatment.
- No syncope or presyncope. Normal LVEF. No role for ICD/EPS at this time
- Monitor with correction of electrolytes/off Amio/more BB
- Will need dual chamber ICD. - plan for today
Hypokalemia:
-Added Aldactone for HFpEF and to help K+
-Frequent K+ checks as outpatient
Permanent AFib on chronic Eliquis, metoprolol, rate good (Afib ablations 2006 and 2013 but in AFib for almost 10 yrs now)
- Held Eliquis this AM for ICD implant.
HTN
DM
SUREKHA
Subjective:
fatigued and dyspnea on exertion. denies any chest pain. Agreeable and wants to proceed and get ICD in place
Data:
Echo 07/22/2024: LVEF 50-55%, mild/mod TR, est PASP 59 mmHg, est RA 15 mmHg,
Echo ([facility]) 02/16/24: Normal LV size, EF 50-55% mild septal dyskinesis with hypokinesis of apical septum, biatrial enlargement, mild to moderate TR, PASP 53 mmHg
Physical Exam
Vital Signs/Labs
Vital Signs
Temp Pulse Resp BP Pulse Ox
97.7 F 58 16 131/58 94
07/26/24 11:07 07/26/24 12:00 07/26/24 11:07 07/26/24 11:05 07/26/24 11:07
07/25/24 07/26/24 07/27/24
06:59 06:59 06:59
Actual Weight 93.1 kg 94 kg
07/26/24 02:40
07/26/24 02:40
Magnesium 2.1 mg/dl (1.6-2.3) 07/25/24 04:33
Triglycerides 63 mg/dl (10-149) 07/23/24 05:11
LDL Cholesterol, Calc 54 mg/dl 07/23/24 05:11
VLDL Cholesterol, Calc 12 mg/dl (0-30) 07/23/24 05:11
HDL Cholesterol 43 mg/dl 07/23/24 05:11
07/22/24
10:40
Pzz-B-Zfvygocbkam Pept 665
Physical Exam
Constitutional: No acute distress and Comfortable
EENT: Anicteric and Moist mucous membranes
Cardiovascular: Pedal edema is absent, JVD pressure is normal and Rhythm/rate is irregular
Respiratory: Respiratory effort normal, Lungs clear to auscul. and Wheeze Absent
GI: Soft, Non tender and Normal bowel sounds
Neuro/Psych: Alert, Oriented and AO x 3
Other: Cath Site
Data Reviewed
-
Date of Service: July 26, 2024
Medical Decision Making: Reviewed Test Results, Independent Historian Assessment and Test Interpretation
EKG: Tracing Personally Visualized and interpreted
Echo: Report Reviewed by me
Labs: Labs Reviewed by me
Old Records: Reviewed
--- NOTE | 2024-07-26 17:07 | ITS.CL.ICD ---
Shading Painter - ICD
Implantable Cardioverter Defibrillator
Procedure Report:
BiV ICD
COPY MANAGER-D with Bi-Ventricular Implantable Cardiac Defibrillator (BiV-ICD) Placement:
Mr. Godinez is a 74-year-old gentleman with chronic heart failure with preserved ejection fraction who has been hospitalized with acute decompensated with fluid overload with NYHA class III, and is noted to have sustained ventricular tachycardia and
monomorphic along with polymorphic arrhythmias. �Patient had been treated with potassium and magnesium but remained severely bradycardic with significant amount of nonsustained VT despite being on adequate antiarrhythmics and electrolytes. Patient
also has long QT and significantly bradycardic requiring pacing to shorten the QT despite normalized electrolytes.�
Given the ventricular arrhythmias, patient will be paced significantly and is in need for defibrillator for his ventricular arrhythmias/tachycardia both VT and V-fib and is recommended a cardiac resynchronization therapy with defibrillator (COPY MANAGER-D).
Patient has permanent atrial fibrillation and will not place atrial lead.
Indications:
Severe bradycardia, long QT interval, monomorphic and polymorphic VT,
Date of the Procedure: 07/26/2024
Pre-Operative Diagnosis: Severe bradycardia, permanent atrial fibrillation, ventricular tachycardia/ventricular fibrillation
Post-Operative Diagnosis: Severe bradycardia, permanent atrial fibrillation, ventricular tachycardia/ventricular fibrillation
Procedure Performed: COPY MANAGER-D with BIVENTRICULAR IMPLANTABLE DEFIBRILLATOR IMPLANTATION
Performing Physician:
Scar White MD
Anesthesia:
See anesthesia records
Detailed Description of the Procedure:
The patient was identified using hospital identification and informed consent obtained for the procedure. The risks were explained to the patient and the family including, but not limited to: Bleeding, infection, arrhythmia, stroke,
vascular/cardiac/lung puncture, surgery, pacemaker dependency/device malfunction. All questions were answered.
A surgical pause was performed in accordance with hospital regulations. Anesthesia service provided sedation as reported separately. Antibiotics administered IV for risk of bacterial colonization. After obtaining informed and written consent, the
patient was brought to the electrophysiology laboratory.
A timeout was performed immediately before the procedure. The left chest was prepped from the nipple to the angle of the jaw with chlorhexidine, and draped following sterile technique in usual routine.�
The procedure site was meticulously prepared with surgical scrub and allowed to dry with no pooling. Sterile draping was applied to cover the procedure site. The image intensifier was draped with sterile bag and positioned over the patient.
The left infra-clavicular region was prepped and draped in the usual sterile fashion. Local anesthesia was administered subcutaneously using 1% lidocaine / Bupivacaine. The left cephalic vein cut-down was performed with an incision at the
delto-pectoral groove, and vascular sheaths were introduced for lead access. These were advanced into the right ventricle and the right atrium.
The right ventricular lead was secured in position with an active fixation technique at the apical septal location.
There was excellent sensing, pacing, and impedance from the lead, with no diaphragmatic stimulation at 10 V output.�Bovie cautery, antibiotics, and fluoroscopy were used.
Attention turned to the coronary sinus. The guide wire was advanced to the IVC and a long hemostatic multipurpose peel away sheath was advanced to the RA.
The CS was cannulated using radiofocus glidewire. The sheath was advanced over the guidewire across the bend into the CS. The glidewire was placed into the CS and coronary sinus venography was obtained with a balloon catheter in the CS. CS anatomy
revealed a lateral branch vein.
A long active fixation quad LV lead was used and advanced into the postero-lateral br over the BMW wire with anticlock movement. Once adequate location achieved the LV lead was deployed by clock monzon turns. Once adequate fixation achieved, the push
and pull test was done and lead location was confirmed.
During pacing, QRS complex was favorable, with a QS in lateral leads and RBBB configuration during LV pacing. It was deemed ideal for biventricular pacing. Diaphragmatic stimulation was not present with high output pacing here. The long guiding
sheath was removed from the vein and then from the body without change in lead position, impedance, sensing, or capture.
The leads were sutured to the underlying pectoralis fascia with 2-0 Ethibond stitches.
�
Some oozing was seen at access sites. This was managed with manual pressure and a loose pursestring suture.�
The leads were attached to the pulse generator in standard configuration with acceptable sensing and threshold parameters.
Atrial plug was placed in the atrial slot.
The pocket was irrigated with antibiotic solution; the pocket was inspected with no active bleeding noted. The device and the leads were placed in the pocket.
D-stat was placed in the pocket due to aggressive DAPT.
A Surgiflo with Thrombin was injected into the device around the lead and the device at the insertion site.
A Tyrx pouch was placed around the device and the leads.
Deep subcutaneous tissues were closed with 2-0 VLoc sutures; intermediate subcutaneous tissue was reopposed using a running 2-0 V loc suture, and the dermis was reopposed using a running 4-0 V loc subcuticular suture. Sponge counts / sharp counts
were appropriate.
Procedure End:
The procedure was tolerated well. Aquacel bandaged was applied. A pressure dressing was applied.
Estimated Blood loss:
10 cc
Specimens Removed:
No cultures and no specimens were obtained. No intraoperative pathology was identified.
Urine output:
None
Packs / Drains/ Tubes:
None
Instrument / Sponge Count Correct:
Yes
Flouro time:
7.9min / 5.97Iasn9
Complications of the Procedure:
None
Condition of Patient at Time of Transfer:
Hemodynamically stable with no neurological or vascular compromise.
Device information:�
Generator: [employer]; Model: [id number]; Serial # [id number]
����������� Atrial Lead: Medtronic atrial plug 6725 ; Serial # [id number]
����������� RV Lead: Medtronic; Model: 6935M-62; Serial # [id number]
����������������������� Measured data on the RV lead was sensing of 3.6 mV, impedance of 399 ohms and threshold of 0.5 V at 0.5ms�
����������� LV pacing lead: Medtronic; Model: 4798-88; Serial # [id number]
����������������������� Measured data on the LV lead was impedance of 304 ohms and threshold of 1.75 V at 0.4ms (LV4 to Coil; diaphragm was seen at max output from LV1).
PROGRAMMING PARAMETERS:�
Kar parameter settings were VVIR 75 �
����������� Mode Switch On
Tachy parameter settings:
����������� SVT discrimination: Off
����������� AF/AFl: Off; Wavelet : on
����������� SVT limit: 260 msec
����������� VT zone:
Slow VT: 150-188msec - Monitor
����������������������� Fast VT: 188-200 ATP then shock
����������� ����������� VF: >200 bpm� Shock� x6
�
Summary:
Successful implantation of COPY MANAGER-D
Results/Recommendations:
-Please follow up CXR�
-Uptitrate Metoprolol to 50 mg BID. Can resume Amiodarone 200 mg BID
Instructions to be given to patient:�
- Please follow up with [facility] at [address] [place] [address] ([phone]) to get your wound checked in 2 weeks of your discharge.
- Do not wet incision site until after it is evaluated at cardiology clinic. No baths or showers until then. Sponge baths / showers are OK but dab dry the dressing after it is wet.�
- Allow 'steri strips' to fall off on their own�
- Do not lift left elbow above shoulder, particularly with sudden jerking movements, for 1 month�
- Do not lift anything weighing more than 5 pounds with the left arm for 1 month�
- If you notice any fevers, shortness of breath, lightheadedness, chest pain, or worsening swelling in the wound site, please contact the arrhythmia clinic, contact your chief reservoir engineering, or present to the hospital for evaluation.�
Scar White MD
Electrophysiology
[2024-07-26 17:13] LABS: Glucose - Point of Care 116 mg/dl (70-99)
--- NOTE | 2024-07-26 17:37 | PTCARENOTE ---
Received the patient from the bottle labeler in his bed. The patient is aaox3, vss, 95% on RA. Left chest dressing c/d/i with a pressure dressing. Left arm immobilizer in place. 100% v-paced on the monitor. He complaints of back pain and needed to sit in
the chair. He became nauseous and feliz astrid was provided. No PRN Tylenol ordered. Reach out to cross coverage Hospitalist and received an order for Tylenol.
[2024-07-26] MEDS: TYLENOL 1000 MG PO ×2 (17:54→23:10)
[2024-07-26] MEDS: PACERONE 200 MG PO (19:56)
[2024-07-26] MEDS: TOPROL XL 50 MG PO (19:59)
[2024-07-26] MEDS: ANCEF 5 IV (21:35)
[2024-07-26 23:09] LABS: Glucose - Point of Care 187 mg/dl (70-99)
[2024-07-26] MEDS: BENADRYL 50 MG PO (23:10)
[2024-07-27] VITALS (13 sets, daily range): BP systolic 96–116; BP diastolic 55–83; BMI 31.0
[2024-07-27 04:08] LABS: Hematocrit 40.7 % (39.0-52.0); Hemoglobin 13.8 g/dL (13.0-18.0); Mean Corp Hgb Conc. 33.9 g/dL (33.0-37.0); Mean Corpuscular Hgb 31.6 pg (27.0-31.0); Mean Corpuscular Volume 93.1 fL (80.0-94.0); Platelet Count 101 10^3/uL (130-400); Red Blood Cell Count 4.37 10^6/uL (4.70-6.10); Red Cell Dist. Width 16.2 % (11.5-14.5); White Blood Cell Count 4.5 10^3/uL (4.8-10.8)
[2024-07-27 04:21] LABS: Blood Urea Nitrogen 24 mg/dl (9-20); Calcium 9.6 mg/dl (8.4-10.2); Carbon Dioxide 26 mmol/L (22-30); Chloride 102 mmol/L (98-107); Estimated Creatinine Clearance 80 ml/min; Glucose 182 mg/dl (70-99); Potassium 5.1 mmol/L (3.5-5.1); Sodium 140 mmol/L (135-145); eGFR > 60.00
[2024-07-27] MEDS: ANCEF 5 IV ×2 (05:23→19:21)
--- NOTE | 2024-07-27 05:35 | PTCARENOTE ---
Rec'd pt at change of shift. Pt AAOx3, on TELE monitor in V-paced rhythm and prolonged QT interval. Pt post BVICD with incision site on the left upper chest and dressing CDI. Pt with L shoulder in immobilizer. Patient educated on activity
restrictions, and verbalized understanding. Pt denied any pain. Pt resting with call hawley in reach.
[2024-07-27 07:18] LABS: Glucose - Point of Care 155 mg/dl (70-99)
[2024-07-27] MEDS: JARDIANCE 12.5 MG PO (07:52)
[2024-07-27] MEDS: FLOMAX 0.4 MG PO (07:52)
[2024-07-27] MEDS: PACERONE 200 MG PO ×2 (07:54→19:20)
[2024-07-27] MEDS: TOPROL XL 50 MG PO ×2 (07:54→19:20)
[2024-07-27] MEDS: SENOKOT PO (07:56)
[2024-07-27] MEDS: MIRALAX PO (07:56)
[2024-07-27] MEDS: NOVOLOG FLEXPEN-LOW RESISTANCE SC ×2 (07:58→13:36)
[2024-07-27] MEDS: ALDACTONE 25 MG PO (08:13)
--- NOTE | 2024-07-27 11:42 | CM ---
Chart reviewed. Patient is independent of ADLS lives with his in a 2 STH, 1 RODGER, ambulates with a SPC and RW. Patient going back to the [employer] [facility] for a lead revision. Plan is for the patient to return home. CM to follow
[2024-07-27 12:17] LABS: NT-proBNP 1190 pg/ml; Troponin I 0.051 ng/ml
[2024-07-27 13:00] LABS: Glucose - Point of Care 177 mg/dl (70-99)
--- NOTE | 2024-07-27 13:25 | W.PN.HOSP.TC ---
Today's Communication/Plan
-
ICD Lead revision today per Dr. White
resume PO Lasix
Assessment / Plan
Assessment / Plan
Assessment:
Acute on chronic HFpEF
- transition to Lasix 40mg BID
- Dry/goal weight felt to be 205-206 pounds (93-93.6 kg)
- OFR/Na+ restrictions
- continue GDMT Jardiance, Aldactone, BB
- Echo: Normal biventricular size and systolic function. Estimated LVEF 50-55%. Aortic sclerosis without stenosis. Filamentous echodensity consistent with Lambl's excrescence. Mild/moderate tricuspid regurgitation. Severely elevated PASP. Estimated
pulmonary artery pressure of 59 mmHg. Assuming a right atrial pressure of 15 mmHg. Compared to echo report 02/16/24: no significant change.
Hypokalemia
- replete prn
NSVT
Brief Torsades in setting of hypokalemia
- tele with ongoing PVCs and NSVT
- s/p IV Amiodarone
- keep K>4, mag >2
- continue BB
- s/p dual chamber ICD placement 07/26; lead revision planned today
non-ischemic myocardial injury
- trend trop
Permanent A. Fib (hx of Ablation 2006, 2013)
- continue Eliquis/BB
Essential HTN
- continue BP meds
DM
- continue Jardiance
- holding basal/bolus regimen
- continue SSI
- A1c is 5.5%
SUREKHA
BPH - continue Flomax
DVT ppx: Eliquis
Code: Full
Anticipated Discharge: 24 - 48 hours
Subjective/Interval History
-
Date of Service: July 27, 2024
for repeat EP intervention today for lead revision
Objective Data
-
Labs:
Laboratory Results
07/27/24
03:43
WBC 4.5 L
Hgb 13.8
Hct 40.7
Plt Count 101 L
Sodium 140
Potassium 5.1 D
Chloride 102
Carbon Dioxide 26
BUN 24 H
Creatinine 0.9
Glucose 182 H
Calcium 9.6
Vital Signs:
Vital Signs
Temp Pulse Resp BP Pulse Ox
97.5 F 75 18 113/58 93
07/27/24 11:40 07/27/24 08:00 07/27/24 11:40 07/27/24 07:19 07/27/24 11:40
I&O
07/26/24 07/27/24 07/28/24
06:59 06:59 06:59
Intake Total 1300 / 1300 720 / 720
Output Total 750 / 750 1155 / 1155 250 / 250
Balance 550 / 550 -435 / -435 -250 / -250
Physical Exam
-
General: No Apparent Distress
HEENT: Normocephalic and Atraumatic
Respiratory: Negative Wheezes
Cardiac: Regular Rhythm and S1/S2
GI: Soft
Neuro: AO x 3
Hematologic / Lymphatic: No Lymphadenopathy
Psych: Calm
Data Reviewed
-
Total Time Spent with Patient (in minutes): 45
Labs: Labs Reviewed by me
--- NOTE | 2024-07-27 14:11 | W.PN.CD ---
Today's Communication / Plan
-
- ICD lead revision.
Impression / Plan
-
Unevq-hr-pzqfqhw HFpEF:
-Dry/goal weight felt to be 205-206 pounds (93-93.6 kg)
-Weight (07/24/2024) 95.8 kg. still needs more diuresis but BUN/Cr has started to rise.
-Needs HF education
-Already on Loop diuretic (Lasix 40 TID and Jardiance 2.5 daily at home)
-Started on MRA => Aldactone on 07/23, will need careful f/u of K+/BUN/Cr
-Modest fluid/Na+ restriction
-Consider outpatient Amyloid workup
NSVT and Torsades
- Received IV Amio
- K is better with continued severe bradycardia, frequent PVCs and nonsustained VT.
- Frequent PVCs and NSVT
- Keep K+ normal (over 4 and close to 5 would be appropriate)
- Increased Metoprolol
- Significant bradycardiac now. heart rate in 40s to 50s. QTc is long.
- With bradycardia and long QT, BB may not be enough. May need atrial pacing to shorten the QTc and ICD for VT/VF treatment.
- s/p BiV ICD on 07/26 - RV lead has high threshold - impedance is unchanged and the position appears stable on repeat CXR
- With high threshold, will reposition the lead.
- Since the implant, patient is 100% paced. LV paced this AM with RV showing high thresholds and non-capture.
- The QTc is 530 with BiV paced and was over 600 ms with LV paced only.
Hypokalemia:
-Added Aldactone for HFpEF and to help K+
- K is overcorrected now.
-Frequent K+ checks as outpatient
Permanent AFib on chronic Eliquis, metoprolol, rate good (Afib ablations 2006 and 2013 but in AFib for almost 10 yrs now)
- resumed Eliquis.
HTN
DM
SUREKHA
Subjective:
[place] better after the ICD. more energy. Agreeable to RV lead revision.
Data:
Echo 07/22/2024: LVEF 50-55%, mild/mod TR, est PASP 59 mmHg, est RA 15 mmHg,
Echo ([facility]) 02/16/24: Normal LV size, EF 50-55% mild septal dyskinesis with hypokinesis of apical septum, biatrial enlargement, mild to moderate TR, PASP 53 mmHg
Physical Exam
Vital Signs/Labs
Vital Signs
Temp Pulse Resp BP Pulse Ox
97.5 F 75 18 113/58 93
07/27/24 11:40 07/27/24 08:00 07/27/24 11:40 07/27/24 07:19 07/27/24 11:40
07/26/24 07/27/24 07/28/24
06:59 06:59 06:59
Actual Weight 94 kg 95.3 kg
07/27/24 03:43
07/27/24 03:43
Magnesium 2.1 mg/dl (1.6-2.3) 07/25/24 04:33
Triglycerides 63 mg/dl (10-149) 07/23/24 05:11
LDL Cholesterol, Calc 54 mg/dl 07/23/24 05:11
VLDL Cholesterol, Calc 12 mg/dl (0-30) 07/23/24 05:11
HDL Cholesterol 43 mg/dl 07/23/24 05:11
07/22/24 07/27/24
10:40 11:20
Znb-X-Ukkjebgtfnr Pept 665 1190
LAB Results
07/27/24
11:20
Troponin I 0.051 H*
Physical Exam
Constitutional: No acute distress and Comfortable
EENT: Anicteric and Moist mucous membranes
Cardiovascular: Rhythm & rate is regular, Pedal edema present, JVD present and Systolic murmur present
Respiratory: Respiratory effort normal, Crackles Absent and Rhonchi Absent
GI: Soft, Non tender and Normal bowel sounds
Neuro/Psych: Alert and Oriented
Other: Cardiac Device Site
Data Reviewed
-
Date of Service: July 27, 2024
Medical Decision Making: Reviewed Test Results, Tests Ordered, Independent Historian Assessment and Test Interpretation
EKG: Tracing Personally Visualized and interpreted
Echo: Report Reviewed by me
X-Ray/CT/US/MRI/NUC/PET: Image Personally Visualized and interpreted
Labs: Labs Reviewed by me
Old Records: Reviewed
--- NOTE | 2024-07-27 15:05 | ITS.CL.ICD ---
Military Personnel Specialist - ICD
Implantable Cardioverter Defibrillator
Procedure Report:
Lead Revision for BIV ICD:
Mr. Godinez is a 74 yrs old s/p BiV ICD on 07/26/24 and is noted to have RV ICD lead dislodgement and is here for ICD lead revision.
Indications: VT and severe bradycardia
Date of the Procedure: 07/27/24
Pre-Operative Diagnosis: VT and severe bradycardia
Post-Operative Diagnosis: VT and severe bradycardia
Procedure Performed: ICD lead revision for SLEEVE IRONER-D
Performing Physician:
Scar White MD
Anesthesia:
See anesthesia records
Pre-operative antibiotics:
Ancef 2gm IV
Detailed Description of the Procedure:
The patient was identified using hospital identification and informed consent obtained for the procedure. The risks were explained including, but not limited to: Bleeding, infection, arrhythmia, stroke, vascular/cardiac/lung puncture, surgery,
pacemaker dependency/device malfunction. All questions were answered.
The patient was brought to the electrophysiology laboratory in stable condition in fasting state. Continuous electrocardiographic and hemodynamic monitoring was initiated. The initial rhythm was LV paced rhythm.
The procedure site was meticulously prepared with surgical scrub and allowed to dry with no pooling. Sterile draping was applied to cover the procedure site. The image intensifier was draped with sterile bag and positioned over the patient.
A surgical pause and time out was performed immediately prior to the procedure with review of her medical history, recent labs, allergies and medications with site of procedure identified and consent noted in the chart. Antibiotics pre operatively
given. All team members concurred.
The left infraclavicular region was prepped and draped in the usual sterile fashion. Local anesthesia was administered subcutaneously using 1% lidocaine / Bupivacaine. Using the prior incision, the skin was incised again and the debris and the prior
sutures were removed. There were blood pool noted in the device pocket and was drained and cleaned. The pocket was revised and the active bleeders were cauterized.
The leads identified attached to underlying fascia and were released individually. The device was interrogated. The left ventricular lead was tested and adequate threshold was noted via the ICD. The patient was paced via the LV lead while the RV
lead was repositioned. The patient had very limited escape rhythm and it was decided to keep the LV pacing via VOO.
The ICD lead was then removed from the canister and the screw was pulled back. The lead was removed and pulled back to the RA and was placed back to the RV and positioned at the apical septal location using active fixation mechanism.
There was excellent sensing, pacing, and impedance from the leads, with no diaphragmatic stimulation at 10 V output.�Bovie cautery, antibiotics, and fluoroscopy were used.
The sheaths were withdrawn, and the thresholds remained acceptable. The leads were secured in position at the venous entry site with 2-0 Ethibond. The electrode terminals were connected to the pulse generator, which was placed into the pocket. The
wound was irrigated thoroughly with antibiotic solution.
A Tyrx pouch was placed around the pocket and the leads.
The pocket was closed in 3 layers using 2-0 VLoc sutures and two layers of 4-0 V loc sutures. Steri-Strips and a bandage were applied externally.�
Procedure End:
The procedure was tolerated well. A bandage was applied to the incision area. Pressure dressing was placed.
Estimated Blood loss:
5 cc
Specimens Removed:
No cultures and no specimens were obtained. No intraoperative pathology was identified.
Urine output:
None
Packs / Drains/ Tubes:
None
Instrument / Sponge Count Correct:
Yes
Complications of the Procedure:
None
Condition of Patient at Time of Transfer:
Hemodynamically stable with no neurological or vascular compromise.
Device information:�
����������� Generator: [employer]; Model: [id number]; Serial # [id number]
����������� Atrial Lead: Medtronic atrial plug 6725 ; Serial # [id number]
����������� RV Lead: [employer]; Model: 6935M-62; Serial # [id number]
����������������������� Measured data on the RV lead was sensing of 3.6 mV, impedance of 399 ohms and threshold of 0.5 V at 0.5ms�
����������� LV pacing lead: Medtronic; Model: 4798-88; Serial # [id number]
����������������������� Measured data on the LV lead was impedance of 304 ohms and threshold of 1.75 V at 0.4ms (LV4 to Coil; diaphragm was seen at max output from LV1).
PROGRAMMING PARAMETERS:�
Kar parameter settings were VVIR 75 �
����������� Mode Switch On
Tachy parameter settings:
����������� SVT discrimination: Off
����������� AF/AFl: Off; Wavelet : on
����������� SVT limit: 260 msec
����������� VT zone:
����������������������� Slow VT: 150-188msec - Monitor
����������������������� Fast VT: 188-200 ATP then shock
����������� ����������� VF: >200 bpm� Shock� x6
Summary:
Successful repositioning of the RV ICD lead for SLEEVE IRONER-D
Results/Recommendations:
-Please follow up CXR�
1. Please provide patient with adequate pain control�
Instructions to be given to patient:�
- Please follow up with [facility] at [address] [place] [address] ([phone]) to get your wound checked within 14 days of your discharge.
- Do not wet incision site until after it is evaluated at cardiology clinic. No showers until then. Sponge baths are OK.�
- Allow 'steri strips' to fall off on their own�
- Do not lift left elbow above shoulder, particularly with sudden jerking movements, for 1 month�
- Do not lift anything weighing more than 5 pounds with the left arm for 1 month�
- If you notice any fevers, shortness of breath, lightheadedness, chest pain, or worsening swelling in the wound site, please contact the arrhythmia clinic, contact your extrusion process operator, or present to the hospital for evaluation.�
Scar White MD
Electrophysiology
--- NOTE | 2024-07-27 15:44 | PTCARENOTE ---
Pt received post procendure at 1515. Awake and alert but drowsy. Pt denies any pain at this time. Left chest with pressure dressing dry and intact. Immobilizer intact.
[2024-07-27] MEDS: LASIX 40 MG PO (15:55)
[2024-07-27 17:04] LABS: Glucose - Point of Care 199 mg/dl (70-99)
[2024-07-27] MEDS: NOVOLOG FLEXPEN-LOW RESISTANCE 1 UNITS SC (17:05)
[2024-07-27] MEDS: SENOKOT 8.6 MG PO (19:20)
[2024-07-27] MEDS: TYLENOL 1000 MG PO (22:06)
[2024-07-27] MEDS: BENADRYL 50 MG PO (22:06)
[2024-07-27 23:14] LABS: Glucose - Point of Care 237 mg/dl (70-99)
--- NOTE | 2024-07-28 01:13 | PTCARENOTE ---
Pt received start of shift, HR 100% V-paced. L arm in immobilizer. Pressure dressing over incision on MAIK chest - no drainage noted. Pt denying any pain. Pt states they are extremely excited at the prospect of being discharged tomorrow.
[2024-07-28] MEDS: ANCEF 5 IV (04:27)
[2024-07-28 04:30] VITALS: BP 114/77
[2024-07-28 05:00] LABS: Hemoglobin 13.5 g/dL (13.0-18.0); Mean Corp Hgb Conc. 33.8 g/dL (33.0-37.0); Mean Corpuscular Hgb 31.3 pg (27.0-31.0); Mean Corpuscular Volume 92.6 fL (80.0-94.0); Mean Platelet Volume 10.9 fL (7.4-10.4); Platelet Count 94 10^3/uL (130-400); Red Blood Cell Count 4.32 10^6/uL (4.70-6.10); Red Cell Dist. Width 16.2 % (11.5-14.5); White Blood Cell Count 7.1 10^3/uL (4.8-10.8)
[2024-07-28 05:15] VITALS: BMI 31.1
[2024-07-28 05:32] LABS: Blood Urea Nitrogen 31 mg/dl (9-20); Calcium 9.6 mg/dl (8.4-10.2); Carbon Dioxide 27 mmol/L (22-30); Chloride 100 mmol/L (98-107); Estimated Creatinine Clearance 65 ml/min; Glucose 204 mg/dl (70-99); Potassium 5.3 mmol/L (3.5-5.1); Sodium 138 mmol/L (135-145); eGFR > 60.00
[2024-07-28 07:09] VITALS: BP 116/64
[2024-07-28 07:13] LABS: Glucose - Point of Care 158 mg/dl (70-99)
[2024-07-28] MEDS: PACERONE 200 MG PO (07:37)
[2024-07-28] MEDS: FLOMAX 0.4 MG PO (07:37)
[2024-07-28] MEDS: JARDIANCE 12.5 MG PO (07:37)
[2024-07-28] MEDS: NOVOLOG FLEXPEN-LOW RESISTANCE 1 UNITS SC (07:40)
[2024-07-28] MEDS: ALDACTONE 25 MG PO (07:42)
[2024-07-28] MEDS: LASIX 40 MG PO (07:42)
[2024-07-28] MEDS: TOPROL XL 50 MG PO (07:48)
[2024-07-28] MEDS: SENOKOT 8.6 MG PO (07:48)
[2024-07-28] MEDS: MIRALAX PO (07:49)
--- NOTE | 2024-07-28 08:13 | W.PN.CD ---
Today's Communication / Plan
-
- Resume lasix and Eliquis
- Add Metolazone 2.5 mg qod PRN
- Stable for discharge
- BMP /Lytes check in 3-4 days
Impression / Plan
-
Bgwln-[id number] HFpEF:
-Dry/goal weight felt to be 205-206 pounds (93-93.6 kg)
-Weight (07/24/2024) 95.8 kg. still needs more diuresis but BUN/Cr has started to rise.
-Needs HF education
-Already on Loop diuretic (Lasix 40 TID and Jardiance 2.5 daily at home)
-Started on MRA => Aldactone on 07/23, will need careful f/u of K+/BUN/Cr
-Modest fluid/Na+ restriction
-Consider outpatient Amyloid workup
NSVT and Torsades
- Received IV Amio
- K is better with continued severe bradycardia, frequent PVCs and nonsustained VT.
- Frequent PVCs and NSVT
- Keep K+ >4.0. It is at 5.3 now.
- Resume Lasix.
- Increased Metoprolol
- Significant bradycardiac s/p BiV ICD on 07/26 - RV lead revised on 07/27
- Now BiV paced. QRS is 136 ms and QT is 466 ms /QTc is 520 ms but has latency prior to the QRS making proper QT much shorter.
- The pacing is increased to 75 bpm to shorten the QTc
- Since the pacing in place - no underlying rhythm noted- Patient appears to be dependent now.
Hypokalemia:
-Added Aldactone for HFpEF and to help K+
-K is 5.3 now
-Resume home lasix.
-Frequent K+ checks as outpatient
Permanent AFib on chronic Eliquis, metoprolol, rate good (Afib ablations 2006 and 2013 but in AFib for almost 10 yrs now)
- resumed Eliquis.
HTN
DM
SUREKHA
Subjective:
[place] better after the GENERAL OPERATIONS AGENT. No issues overnight.
Data:
Echo 07/22/2024: LVEF 50-55%, mild/mod TR, est PASP 59 mmHg, est RA 15 mmHg,
Echo ([facility]) 02/16/24: Normal LV size, EF 50-55% mild septal dyskinesis with hypokinesis of apical septum, biatrial enlargement, mild to moderate TR, PASP 53 mmHg
Physical Exam
Vital Signs/Labs
Vital Signs
Temp Pulse Resp BP Pulse Ox
98.2 F 78 18 114/77 92
07/28/24 07:06 07/28/24 05:00 07/28/24 07:06 07/28/24 04:30 07/28/24 07:06
07/27/24 07/28/24 07/29/24
06:59 06:59 06:59
Actual Weight 95.3 kg 95.5 kg
07/28/24 04:40
07/28/24 04:40
Magnesium 2.1 mg/dl (1.6-2.3) 07/25/24 04:33
Triglycerides 63 mg/dl (10-149) 07/23/24 05:11
LDL Cholesterol, Calc 54 mg/dl 07/23/24 05:11
VLDL Cholesterol, Calc 12 mg/dl (0-30) 07/23/24 05:11
HDL Cholesterol 43 mg/dl 07/23/24 05:11
07/22/24 07/27/24
10:40 11:20
Kdv-F-Zrspnrfsqoq Pept 665 1190
LAB Results
07/27/24
11:20
Troponin I 0.051 H*
Physical Exam
Constitutional: No acute distress and Comfortable
EENT: Anicteric and Moist mucous membranes
Cardiovascular: Rhythm & rate is regular, Pedal edema is absent, JVD pressure is normal and Systolic murmur absent
Respiratory: Respiratory effort normal, Lungs clear to auscul., Wheeze Absent and Crackles Absent
GI: Soft, Non tender and Normal bowel sounds
Neuro/Psych: Alert, Oriented and AO x 3
Other: Cardiac Device Site
Data Reviewed
-
Date of Service: July 28, 2024
Medical Decision Making: Reviewed Test Results, Independent Historian Assessment, Test Interpretation and Review of Case with other Provider
EKG: Tracing Personally Visualized and interpreted
Echo: Report Reviewed by me
Labs: Labs Reviewed by me
Old Records: Reviewed
--- NOTE | 2024-07-28 08:57 | W.PN.HOSP.TC ---
Today's Communication/Plan
-
dc home
Assessment / Plan
Assessment / Plan
Assessment:
Acute on chronic HFpEF
- transition to Lasix 40mg BID
- Dry/goal weight felt to be 205-206 pounds (93-93.6 kg)
- OFR/Na+ restrictions
- continue GDMT Jardiance, Aldactone, BB
- Echo: Normal biventricular size and systolic function. Estimated LVEF 50-55%. Aortic sclerosis without stenosis. Filamentous echodensity consistent with Lambl's excrescence. Mild/moderate tricuspid regurgitation. Severely elevated PASP. Estimated
pulmonary artery pressure of 59 mmHg. Assuming a right atrial pressure of 15 mmHg. Compared to echo report 02/16/24: no significant change.
Hypokalemia
- replete prn
NSVT
Brief Torsades in setting of hypokalemia
- tele with ongoing PVCs and NSVT
- s/p IV Amiodarone
- keep K>4, mag >2
- continue BB
- s/p dual chamber ICD placement 07/26; s/p lead revision 07/27
- OP Device f/u appointment
non-ischemic myocardial injury
- trend trop
Permanent A. Fib (hx of Ablation 2006, 2013)
- continue Eliquis/BB
Essential HTN
- continue BP meds
DM
- continue Jardiance
- holding basal/bolus regimen
- continue SSI
- A1c is 5.5%
SUREKHA
BPH - continue Flomax
DVT ppx: Eliquis
Code: Full
More than 30 minutes spent in discharge including
Final examination of the patient
Summarizing hospital stay
Instructions for continuing care to all relevant caregivers
Preparation of discharge records, prescriptions, and referral forms
Total time spent (in minutes): 42
Anticipated Discharge: Today
Subjective/Interval History
-
Date of Service: July 28, 2024
denies any new complaints at present
Objective Data
-
Labs:
Laboratory Results
07/28/24
04:40
WBC 7.1
Hgb 13.5
Hct 40.0
Plt Count 94 L
Sodium 138
Potassium 5.3 H
Chloride 100
Carbon Dioxide 27
BUN 31 H
Creatinine 1.1
Glucose 204 H
Calcium 9.6
Vital Signs:
Vital Signs
Temp Pulse Resp BP Pulse Ox
98.2 F 78 18 114/77 92
07/28/24 07:06 07/28/24 05:00 07/28/24 07:06 07/28/24 04:30 07/28/24 07:06
I&O
07/27/24 07/28/24 07/29/24
06:59 06:59 06:59
Intake Total 720 / 720
Output Total 1155 / 1155 1450 / 1450
Balance -435 / -435 -1450 / -1450
Physical Exam
-
General: No Apparent Distress
HEENT: Normocephalic and Atraumatic
Respiratory: Negative Wheezes
Cardiac: Regular Rhythm and S1/S2
GI: Soft
Genito-urinary: No Costovertebral Tender
Musculoskeletal: No Edema
Neuro: AO x 3
Hematologic / Lymphatic: No Lymphadenopathy
Psych: Calm
Data Reviewed
-
Total Time Spent with Patient (in minutes): 42
Labs: Labs Reviewed by me
[2024-07-28] MEDS: ELIQUIS 5 MG PO (09:01)
--- NOTE | 2024-07-28 09:05 | W.DS.TRANS ---
DC Summary - Geophysical Engineer
-
Discharge Instructions:
Sleep Apnea Risk Intermediate
Discharge Diagnosis/Procedures acute on chronic CHF, NSVT, s/p ICD implant and
revision of lead
Diet Low Cholesterol,Low Sodium,Restrict fluids to 48
oz
Activity Other activity,As tolerated
Additional Activity follow device restrictions
Driving Restrictions No driving for 1 week
Bathing Restrictions OK to Shower
Specialty Instructions Weigh Daily
Instructions: *[facility] Heart Failure Instructions
Stand-Alone Forms: DC Inst - Implanted Device
Changes to Home Medications: Yes
Discharge Medications:
DC Medications w/original date entered in [employer]
tamsulosin 0.4 mg capsule 0.4 mg PO DAILY Urinary Issue 01/18/14
insulin glargine 100 unit/mL subcutaneous solution (Lantus U-100 Insulin) 28 unit SC HS diabetes ##0 05/27/18
loratadine 10 mg tablet (Claritin) 10 mg PO DAILY Allergies ##0 05/27/18
omega-3 fatty acids 1,000 mg PO DAILY Supplement ##0 05/27/18
insulin aspart U-100 100 unit/mL (3 mL) subcutaneous pen (Novolog FlexPen U-100 Insulin aspart) 6 units SC AC ##1 05/30/18
apixaban 5 mg tablet (Eliquis) 5 mg PO BID Blood Clot Prevention/Tx 05/03/24
diphenhydramine 25 mg-acetaminophen 500 mg tablet (Tylenol PM Extra Strength) 2 tab PO HS sleep 05/03/24
empagliflozin 25 mg tablet (Jardiance) 12.5 mg PO DAILY diabetes 05/03/24
flaxseed oil 1,000 mg capsule 3,000 mg PO DAILY Supplement 05/03/24
glucosamine sulfate dipotassium Cl 500 mg-chondroitin 400 mg capsule (Glucosamine Sulfate 2 KCL-Chondroitin) 1 cap PO DAILY Supplement 05/03/24
amiodarone 200 mg tablet 200 mg PO BID #60 tabs 07/28/24
furosemide 40 mg tablet 40 mg PO BID AT 0800,1600 #60 tabs 07/28/24
metolazone 2.5 mg tablet 2.5 mg PO P31NLSI PRN weight gain > 3 lbs #30 tabs 07/28/24
metoprolol succinate 50 mg tablet,extended release 24 hr 50 mg PO BID #60 tabs 07/28/24
spironolactone 25 mg tablet 25 mg PO DAILY #30 tabs 07/28/24
Home Medication Changes
Amio added
Aldactone added
BB to BID
Lasix to BID from TID, prn Metolazone added
Pending Results: No
Total time spent discharging patient (in min): 42
--- NOTE | 2024-07-28 10:55 | PTCARENOTE ---
Pt received this am with no c/o. Pressure dressing to left chest removed by Dr. White. Site clean and dry with aqucell dressing intact and no hematoma. Pt discharged to home with his . Discharge instructions given and reviewed with pt and his
with good understanding.
[2024-07-28 10:57] VITALS: BP 112/62
== END 2024-07-28 11:07 | disposition home or self-care (01) | DRG 276 ==
LOC: IVU 12:57
PROVIDERS: Internal Medicine Cardiovascular Disease; Physician Assistant Medical; Registered Nurse; ADMITTING PHYSICIAN Internal Medicine; ATTENDING PHYSICIAN Internal Medicine; CONSULT PHYSICIAN Internal Medicine; EMERGENCY PHYSICIAN Emergency Medicine; FAMILY PHYSICIAN Internal Medicine
PROC: 0JH609Z Insertion of Cardiac Resynchronization Defibrillator Pulse Generator into Chest Subcutaneous Tissue and Fascia, Open Approach (ICD-10-PCS; 2024-07-26)
PROC: 02HK3KZ Insertion of Defibrillator Lead into Right Ventricle, Percutaneous Approach (ICD-10-PCS; 2024-07-26)
PROC: 02H63KZ Insertion of Defibrillator Lead into Right Atrium, Percutaneous Approach (ICD-10-PCS; 2024-07-26)
PROC: 0JW Subcutaneous Tissue and Fascia, Revision (ICD-10-PCS; 2024-07-27)
DX: I11.0 Hypertensive heart disease with heart failure (principal); I50.33 Acute on chronic diastolic (congestive) heart failure; I48.21 Permanent atrial fibrillation; I47.29 Other ventricular tachycardia; I47.21 Torsades de pointes; I5A Non-ischemic myocardial injury (non-traumatic); E11.9 Type 2 diabetes mellitus without complications; Z79.4 Long term (current) use of insulin; I70.0 Atherosclerosis of aorta; I49.3 Ventricular premature depolarization; Z87.891 Personal history of nicotine dependence; E87.6 Hypokalemia; G47.33 Obstructive sleep apnea (adult) (pediatric)
CPT/HCPCS: 33215; 71045; 71046; 76700; 80048; 80053; 80061; 81003; 82248; 82962; 83036; 83735; 83880; 84443; 84484; 85025; 85027; 93005; 93306; 96374; 97162; 97167; 99285

== ENCOUNTER → 2024-11-04 09:06 | Outpatient (REF) | payer OTHER, SELFPAY | LOC: RAD 09:06 | PROVIDERS: ATTENDING PHYSICIAN Internal Medicine | DX: E06.0 Acute thyroiditis (principal) | CPT/HCPCS: 76536 ==

== ENCOUNTER → 2024-12-10 07:07 | Outpatient (REF) | payer OTHER, SELFPAY | LOC: DHCBC/DCA 07:07 | PROVIDERS: ATTENDING PHYSICIAN Internal Medicine; FAMILY PHYSICIAN Internal Medicine | DX: Z95.810 Presence of automatic (implantable) cardiac defibrillator (principal); I47.20 Ventricular tachycardia, unspecified | CPT/HCPCS: 78452; 93017; A9500; J2785 ==

== ENCOUNTER 2024-12-22 07:16 | Day surgery (SDC) | payer OTHER, SELFPAY ==
[2024-12-22] VITALS (25 sets, daily range): BP systolic 89–118; BP diastolic 57–74; BMI 27.4; BMI 28.0
[2024-12-22 08:30] LABS: Glucose - Point of Care 94 mg/dl (70-99)
[2024-12-22] MEDS: NSS 260 ML IV (08:39)
--- NOTE | 2024-12-22 12:35 | ITS.CL.ANGIO ---
Addendum entered and electronically signed by Cristobal Vanegas DO 12/22/24 13:04:
This addendum serves as the narrative for the PCI due to accidental note signing prior to this portion of the note being added.
Narrative:
The decision was made to proceed with percutaneous coronary intervention. The diagnostic catheter was removed over a wire and a 6Fr EBU 3.5 guiding catheter was advanced to the aortic root and seated in the left main coronary artery. Additional
heparin was given and a Power Turn Flex wire was advanced into the mid LAD. The wire would not cross the mid LAD of its own accord and it was determined that extra-support would be needed. A mini microcatheter was advanced over the power turn flex
wire for support. With the support of the mini microcatheter, the power turn flex wire was able to advance into the distal LAD. The mini microcatheter was removed using a wire pinning technique.
We attempted to predilate the 95% mid LAD lesion with a 2.0 x 15 semicompliant balloon. Unfortunately, this balloon would not cross the lesion. The decision was made to advance with support. A 1.5 x 15 semicompliant balloon was advanced with a 6
Canadian guide liner. The balloon was advanced to the edge of the lesion and the GuideLiner was brought into the mid LAD for support. The balloon was advanced into the lesion, with some significant difficulty. The lesion was predilated with a 1.5 x
15 semi-compliant balloon to 12 nelson. The semi-compliant balloon was removed.
This demonstrated gnosticist of KATERINA-3 flow. The 2.0 x 15 Euphora semicompliant balloon was readvanced. The lesion was postdilated to 12 nelson, but we suffered balloon rupture. The semicompliant balloon was withdrawn and a 2.5 x 12 noncompliant
balloon was advanced. The entire, densely calcified region was dilated to 20 nelson. In spite of this high pressure inflation, we did not have full balloon expansion. We attempted further predilation with a 2.75 x 12 noncompliant balloon with
similar results. Furthermore, angiography revealed that high-pressure inflations had caused a dissection in the mid LAD, propagating back towards the proximal vessel.
The cardiothoracic surgery team was alerted to the proximal LAD dissection in case of percutaneous failure.
The decision was made to proceed with plaque modification. Because of the local dissection, orbital or rotational atherectomy was contraindicated. A Shockwave 2.5 x 12 coronary lithotripsy balloon was advanced over the wire and into the mid LAD
lesion. The balloon would not pass through the entire lesion, but the first third of the balloon was very firmly wedged in the calcified section. The balloon was sterilely connected to the controller and prepped to negative pressure. Once in
satisfactory position, the balloon was inflated to 4 nelson. After confirming good contact with the vessel wall, 10 pulses were delivered. After delivering 10 pulses, the balloon was inflated to 6 nelson then deflated. After this first round of
lithotripsy, the balloon was able to pass into the more distal lesion with relative ease. The entire lesion was treated in a similar manner for total of 12 rounds.
The shockwave balloon was withdrawn. Angiography revealed significant improvement in the 95%, densely calcified mid LAD lesion. It also revealed a 70% lesion in the mid LAD, downstream to the original lesion that was not fully appreciated given
the slow flow.
The decision was made to perform intracoronary imaging. An IVUS catheter was advanced through the guiding catheter and into the ostium of the artery. Ring down was performed once the imaging crystal was no longer inside of the guiding catheter. The
IVUS catheter was advanced into the mid LAD. Intravascular ultrasound was performed in a retrograde fashion using a slow pullback. Intracoronary imaging demonstrated severe, densely calcified atherosclerotic disease throughout the entire vessel.
Unfortunately, it was very difficult to obtain any meaningful vessel measurements in the distal vessel. The proximal vessel confirmed dense calcification and proximal vessel measurement was obtained.
The IVUS catheter was withdrawn and a Medtronic Geovani [place] 2.5 x 38 drug-eluting stent was advanced into the distal mid LAD. Meticulous care was taken while positioning the stent, ensuring that the 70% lesion was completely covered while not
extending to distal into the LAD. The stent was deployed at 12 atmospheres. The stent balloon was removed. A 2.5 x 12 noncompliant balloon was advanced into the stent and the stent was postdilated to 16 atmospheres. We then advanced a Medtronic
Geovani [place] 3.0 x 22 drug-eluting stent into the proximal portion of the mid LAD. Meticulous care was taken while positioning the stent, ensuring adequate overlap with the more distal stent while also ensuring that the entire lesion and
dissection segment were covered without jailing the diagonal. Once we were satisfied with our position, the stent was deployed to 12 nelson. The stent balloon was withdrawn and a 3.0 x 15 noncompliant balloon was advanced. The stent overlap was
postdilated to 16 nelson. The proximal stent margin was postdilated to 18 nelson. The noncompliant balloon was withdrawn.
Angiography was performed in orthogonal views, confirming good stent expansion and an excellent angiographic result. The coronary wire was withdrawn and the guide was disengaged from the artery. The catheter was removed over a standard J-wire.
Original Note:
Physical Therapy Instructor - Angioplasty
Angioplasty
Procedure Report:
CARDIAC CATHETERIZATION REPORT
Date of Procedure: 12/22/2024
Referring: Vineet Lowe M.D.
INDICATION: Abnormal stress test, concern for impaired anginal warning, history of VT status post ICD.
PROCEDURE:
1. Left heart catheterization.
2. Coronary angiography.
3. Successful intracoronary lithotripsy of the mid LAD.
4. Successful IVUS guided PCI of the mid LAD.
A total of 86 minutes of procedural/moderate sedation was utilized. An independent medical office receptionist assistant was present to assist with and help manage the patient's level of consciousness and physiologic status.
ACCESS:
1. 6 Canadian right radial artery using a modified Seldinger technique under ultrasound guidance. Ultrasound image obtained.
CATHETERS:
1. 5 Canadian JR4.
2. 5 Canadian JL 3.5.
3. 6 Canadian EBU 3.5 guiding catheter.
HEMODYNAMIC DATA
Weight (kg): 86.6
AO (s/d/x, mmHg): 93/62/73
LV (s/x mmHg): 93/14
LEFT VENTRICULOGRAPHY: Not performed.
CORONARY ANGIOGRAPHY
Dominance: Right.
Left Main: Normal size, trifurcating vessel. There is modest, distal tapering of the left main coronary artery.
LAD: Normal size vessel giving rise to 1 significant diagonal. There is a densely calcified, 95% lesion in the mid LAD with KATERINA II flow. There is an additional 70% lesion in the mid LAD downstream to the 95% lesion that is not fully
appreciated until after gnosticist of KATERINA-3 flow.
Ramus: Small size vessel supplying the proximal margin of the anterior and anterolateral base. There is no visible coronary artery disease.
Circumflex: Large size, nondominant vessel giving rise to 1 significant obtuse marginal. This marginal subsequently bifurcates into an upper and lower branch. There is severe tortuosity of the distal OM branches as well as the terminal
circumflex. There are minor luminal irregularities throughout the vessel.
RCA: Normal size, dominant vessel. There is a densely calcified, 30% lesion in the proximal vessel.
INTERVENTION(S)
1. Successful PTCA of the densely calcified 95% mid LAD lesion (Medtronic Euphora 1.5 x 15 semicompliant balloon) with reduction in stenosis to 80%, restoring KATERINA-3 flow.
1. Successful intracoronary lithotripsy of the densely calcified 95% mid LAD lesion (Shockwave 2.5 x 12 coronary lithotripsy balloon) with good balloon expansion.
2. Successful IVUS guided PCI of the 70% distal mid LAD lesion (Medtronic Mereta [place] 2.5 x 38 MELANIE, postdilated with a 2.5 NC balloon to high pressure) with reduction in stenosis to 0%, maintaining KATERINA-3 flow.
3. Successful IVUS guided PCI of the 95% mid LAD lesion back to the level of the first diagonal (Medtronic Geovani [place] 3.0 x 22 MELANIE, overlapping with the distal stent, postdilated with a 3.0 NC balloon to high pressure) with reduction in stenosis
to 0%, maintaining KATERINA-3 flow.
Closure Device: Vascular band.
Radiation (mGy): 973.64
DAP (cm2.Gy): 75.7840
Fluoroscopy time (minutes): 24.7
CONCLUSIONS
1. Right dominant circulation with a 30% lesion in the proximal RCA, luminal irregularities in the circumflex, modest tapering of the distal left main and tandem, densely calcified 95% and 70% lesions in the mid LAD with KATERINA II flow, status post
successful intracoronary lithotripsy (shockwave 2.5 x 12 lithotripsy balloon) and IVUS guided PCI (overlapping Medtronic Geovani [place] 2.5 x 38 MELANIE, 3.0 x 22 MELANIE, postdilated with a 2.5 NC balloon throughout and a 3.0 NC balloon at the overlap and
through the proximal margin) with reduction in stenosis to 0%, restoring KATERINA-3 flow.
2. Normal filling pressures (LVEDP = 14 mmHg at 86.6 kg).
3. Impaired anginal warning system.
RECOMMENDATIONS:
1. Expectant management after cardiac catheterization via right radial approach.
2. Limited weight bearing on the right wrist for one week.
3. Antithrombotic therapy with clopidogrel (loaded in the Physical Therapy Instructor) and apixaban. No role for aspirin.
4. Aggressive secondary prevention with PCSK9 inhibitor (previous intolerance to statins). Goal LDL <55.
5. Guideline directed medical therapy as hemodynamics will tolerate.
6. Referral to cardiac rehab.
7. Admit for overnight observation.
8. Consider intermittent, routine stress testing giving impaired anginal warning.
Copy to: Vineet Lowe M.D., Saud Means D.O.
Cristobal Vanegas DO, FACC, FACP
[2024-12-22 14:49] LABS: Glucose - Point of Care 129 mg/dl (70-99)
--- NOTE | 2024-12-22 16:00 | PTCARENOTE ---
Patient received from the laboratory immunologist in a wheelchair. Right radial site dressing CDI. Denies pain, placed on the monitor, AV paced HR in the 70's. Plan of care reviewed, call hawley in reach
[2024-12-22] MEDS: LASIX 40 MG PO (16:44)
[2024-12-22 16:49] LABS: Glucose - Point of Care 174 mg/dl (70-99)
[2024-12-22] MEDS: NOVOLOG FLEXPEN-MODERATE RESISTANCE 1 UNITS SC (17:58)
[2024-12-22] MEDS: TOPROL XL 50 MG PO (19:53)
[2024-12-22] MEDS: TYLENOL 650 MG PO (19:53)
[2024-12-22 20:37] LABS: Hemoglobin 13.1 g/dL (13.0-18.0); Mean Corp Hgb Conc. 33.6 g/dL (33.0-37.0); Mean Corpuscular Hgb 31.7 pg (27.0-31.0); Mean Corpuscular Volume 94.4 fL (80.0-94.0); Mean Platelet Volume 10.5 fL (7.4-10.4); Platelet Count 89 10^3/uL (130-400); Red Blood Cell Count 4.13 10^6/uL (4.70-6.10); Red Cell Dist. Width 14.6 % (11.5-14.5); White Blood Cell Count 3.6 10^3/uL (4.8-10.8)
[2024-12-22 20:40] LABS: Glucose - Point of Care 123 mg/dl (70-99)
[2024-12-22] MEDS: PEPCID 20 MG IV (20:45)
[2024-12-22] MEDS: NSS (PRESERVATIVE FREE) 8 ML IV (20:45)
[2024-12-22] MEDS: MAALOX 30 ML PO (20:45)
[2024-12-22 20:47] LABS: Blood Urea Nitrogen 22 mg/dl (9-20); Calcium 8.8 mg/dl (8.4-10.2); Carbon Dioxide 26 mmol/L (22-30); Chloride 104 mmol/L (98-107); Estimated Creatinine Clearance 54 ml/min; Glucose 123 mg/dl (70-99); Potassium 3.8 mmol/L (3.5-5.1); Sodium 139 mmol/L (135-145); eGFR > 60.00
[2024-12-22 20:58] LABS: Troponin I 0.091 ng/ml
[2024-12-22] MEDS: LANTUS 0.28 UNITS SC (22:05)
--- NOTE | 2024-12-22 22:46 | W.PN.UPDATE ---
Update Note
Progress Note Update
-@ 8:35 pm came in to eval pt for 3/10 substernal burning. ECG with v-pacing @ 75 bpm with T inversions V1-V3; otherwise, no change from prior. No distress, no sob, pain is non-radiating to either his jaw, back or arm. No nausea or abd pain. Has hx
of GERD, on Omeprazole at home. pOx 99% on 2L, BP 92/57 (got 50 mg Toprol recently). Cath report reviewed, noted prox LAD dissection with LAD stents.
-Hg is stable 13.1. Cr stable 1.2 (1.1 prior), trop 0.091, likely elevated d/t manipulation/dissection - will follow in am.
-gave Maalox and iv Pepcid and pain resolved. Checked pt - he is comfortable and denies any pain currently.
-will continue to monitor.
--- NOTE | 2024-12-22 23:50 | PTCARENOTE ---
Assumed care of the pt @1899. @1929 pt c/o CP 02/07 EKG done, labs sent , 2LNC, Tylenol given. Melly Martin notified and at bedside to eval. MOM and Pepcid given. Pt states that he feels better.
[2024-12-23] VITALS (7 sets, daily range): BP systolic 85–110; BP diastolic 53–73
[2024-12-23 03:47] LABS: Hematocrit 39.5 % (39.0-52.0); Mean Corp Hgb Conc. 32.9 g/dL (33.0-37.0); Mean Corpuscular Hgb 31.1 pg (27.0-31.0); Mean Corpuscular Volume 94.5 fL (80.0-94.0); Mean Platelet Volume 10.5 fL (7.4-10.4); Platelet Count 93 10^3/uL (130-400); Red Blood Cell Count 4.18 10^6/uL (4.70-6.10); Red Cell Dist. Width 14.6 % (11.5-14.5); White Blood Cell Count 4.4 10^3/uL (4.8-10.8)
[2024-12-23 04:04] LABS: Blood Urea Nitrogen 22 mg/dl (9-20); Calcium 8.9 mg/dl (8.4-10.2); Carbon Dioxide 26 mmol/L (22-30); Chloride 106 mmol/L (98-107); Estimated Creatinine Clearance 50 ml/min; Glucose 85 mg/dl (70-99); HDL Cholesterol 49 mg/dl; LDL Cholesterol, Calculated 71 mg/dl; Sodium 141 mmol/L (135-145); Total Cholesterol 131 mg/dl (50-199); Triglyceride 58 mg/dl (10-149); Very Low Density Lipoprotein 11 mg/dl (0-30); eGFR 56.93
[2024-12-23 08:00] LABS: Glucose - Point of Care 93 mg/dl (70-99)
[2024-12-23 08:21] LABS: ACT-LR - POC > 397 Seconds (116-155)
[2024-12-23 08:21] LABS: ACT-LR - POC > 397 Seconds (116-155)
[2024-12-23] MEDS: NOVOLOG FLEXPEN-MODERATE RESISTANCE SC (08:34)
--- NOTE | 2024-12-23 08:39 | W.PN.CD ---
Today's Communication / Plan
-
ok for discharge today
Impression / Plan
-
74 year old man with history of VT s/p ICD, Afib on Eliquis, HFpEF, HTN, and TR. He had a recent stress test with apical ischemia and was referred for outpatient [facility] cath 12/23/[address] Vanegas. Cath demonstrated high grade mid-LAD disease that
was treated successfully with IVL and DESx2. He was admitted for observation overnight.
Subjective: Feeling well. Had episode of chest brning last night that resolved. EKG was stable and troponin was checked x1 and was positive but this was likely Type 4 and he had no further symptoms.
Tele: V-paced
CAD s/p PCI to LAD
- films reviewed
- cont. routine post cath care
- Eliquis + Plavix
- cont. PCSK9i, goal LDL <55
- cardiac rehab
- consider intermittent, routine stress testing giving impaired anginal warning.
Uhetn-vx-ubspfra HFpEF:
-Dry/goal weight felt to be 205-206 pounds (93-93.6 kg)
-cont. lasix, PRN metolazone, jardiance, romario
NSVT and Torsades
- none noted here
- cont. amio/metop
Permanent AFib on chronic Eliquis, metoprolol, rate good (Afib ablations 2006 and 2013 but in AFib for almost 10 yrs now)
- resumed Eliquis.
- cont. amio/metop
LHC and PCI 12/22/24
CONCLUSIONS
1. Right dominant circulation with a 30% lesion in the proximal RCA, luminal irregularities in the circumflex, modest tapering of the distal left main and tandem, densely calcified 95% and 70% lesions in the mid LAD with KATERINA II flow, status post
successful intracoronary lithotripsy (shockwave 2.5 x 12 lithotripsy balloon) and IVUS guided PCI (overlapping Medtronic Geovani [place] 2.5 x 38 MELANIE, 3.0 x 22 MELANIE, postdilated with a 2.5 NC balloon throughout and a 3.0 NC balloon at the overlap and
through the proximal margin) with reduction in stenosis to 0%, restoring KATERINA-3 flow.
2. Normal filling pressures (LVEDP = 14 mmHg at 86.6 kg).
3. Impaired anginal warning system.
RECOMMENDATIONS:
1. Expectant management after cardiac catheterization via right radial approach.
2. Limited weight bearing on the right wrist for one week.
3. Antithrombotic therapy with clopidogrel (loaded in the Latex Fashions Designer) and apixaban. No role for aspirin.
4. Aggressive secondary prevention with PCSK9 inhibitor (previous intolerance to statins). Goal LDL <55.
5. Guideline directed medical therapy as hemodynamics will tolerate.
6. Referral to cardiac rehab.
7. Admit for overnight observation.
8. Consider intermittent, routine stress testing giving impaired anginal warning.
Physical Exam
Vital Signs/Labs
Vital Signs
Temp Pulse Resp BP Pulse Ox
36.4 C 75 20 96/61 97
12/23/24 07:52 12/23/24 04:45 12/23/24 07:52 12/23/24 04:00 12/23/24 07:52
12/22/24 12/23/24 12/24/24
06:59 06:59 06:59
Actual Weight 88.5 kg
12/23/24 03:10
12/23/24 03:09
Triglycerides 58 mg/dl (10-149) 12/23/24 03:09
LDL Cholesterol, Calc 71 mg/dl 12/23/24 03:09
VLDL Cholesterol, Calc 11 mg/dl (0-30) 12/23/24 03:09
HDL Cholesterol 49 mg/dl 12/23/24 03:09
LAB Results
12/22/24 12/23/24
20:23 03:09
Troponin I 0.091 H* 1.320 H* D
Physical Exam
Constitutional: No acute distress
Cardiovascular: Rhythm & rate is regular
Respiratory: Respiratory effort normal
Neuro/Psych: AO x 3
Data Reviewed
-
Date of Service: December 23, 2024
Medical Decision Making: Reviewed Test Results
EKG: Tracing Personally Visualized and interpreted
Medical Tests (PFT, Pathology etc): Image Personally Visualized and interpreted
Labs: Labs Reviewed by me
[2024-12-23] MEDS: PROTONIX 40 MG PO (08:45)
[2024-12-23] MEDS: PLAVIX 75 MG PO (08:46)
[2024-12-23] MEDS: ALDACTONE 25 MG PO (08:46)
[2024-12-23] MEDS: CLARITIN 10 MG PO (08:46)
[2024-12-23] MEDS: FARXIGA 10 MG PO (08:46)
[2024-12-23] MEDS: TOPROL XL 50 MG PO (08:47)
[2024-12-23] MEDS: FLOMAX 0.4 MG PO (08:47)
[2024-12-23] MEDS: ELIQUIS 5 MG PO (08:47)
[2024-12-23] MEDS: PACERONE 200 MG PO (08:47)
[2024-12-23] MEDS: LASIX 40 MG PO (08:48)
--- NOTE | 2024-12-23 09:26 | CM ---
Reviewed chart Met with Mr. Godinez to review review discharge plans. He states prior to admission he resides with his spouse in a two story home with two steps to enter. He states he has a full flight of steps to get to bedroom/full bathroom . He
states he has a powder room on the first floor. He states prior to admission he ambulates with a single point cane for balance. He states he is independent with ADLS He states he has a single point cane at home. He states he has a prescription
plan and uses [facility]. The discharge plan is to return home with his spouse when medically stable.
--- NOTE | 2024-12-23 09:41 | PTCARENOTE ---
Patient discharged to home. Teaching completed, patient verbalized understanding. IV and telemetry removed. Discharge paperwork and booklets given to patient. will drive patient home today
[2024-12-23 10:18] LABS: Glycohemoglobin (HgbA1c) 5.8 % (4.0-5.6)
--- NOTE | 2024-12-23 10:48 | W.DS.TRANS ---
DC Summary - Creative Services Manager
-
Discharge Instructions:
Discharge Diagnosis/Procedures Lithotripsy with angioplasty and stent x2 to
Left Anterior Descending artery
Diet Low Cholesterol,Diabetic, Carb Controlled
Driving Restrictions No driving for 24 hours
Other Services Cardiac Rehab
Instructions:
Stand-Alone Forms: DC Instructions- Cath/EP Lab
Changes to Home Medications: Yes
Discharge Medications:
DC Medications w/original date entered in [email or web address]
tamsulosin 0.4 mg capsule 0.4 mg PO DAILY Urinary Issue 01/18/14
insulin glargine 100 unit/mL subcutaneous solution (Lantus U-100 Insulin) 28 unit SC HS diabetes ##0 05/27/18
loratadine 10 mg tablet (Claritin) 10 mg PO DAILY Allergies ##0 05/27/18
omega-3 fatty acids 1,000 mg PO DAILY Supplement ##0 05/27/18
insulin aspart U-100 100 unit/mL (3 mL) subcutaneous pen (Novolog FlexPen U-100 Insulin aspart) 6 units SC AC ##1 05/30/18
apixaban 5 mg tablet (Eliquis) 5 mg PO BID Blood Clot Prevention/Tx 05/03/24
diphenhydramine 25 mg-acetaminophen 500 mg tablet (Tylenol PM Extra Strength) 2 tab PO HS sleep 05/03/24
empagliflozin 25 mg tablet (Jardiance) 12.5 mg PO DAILY diabetes 05/03/24
flaxseed oil 1,000 mg capsule 3,000 mg PO HS Supplement 05/03/24
glucosamine sulfate dipotassium Cl 500 mg-chondroitin 400 mg capsule (Glucosamine Sulfate 2 KCL-Chondroitin) 1 cap PO DAILY Supplement 05/03/24
furosemide 40 mg tablet 40 mg PO BID AT 0800,1600 #60 tabs 07/28/24
metolazone 2.5 mg tablet 2.5 mg PO [id number] PRN weight gain > 3 lbs #30 tabs 07/28/24
metoprolol succinate 50 mg tablet,extended release 24 hr 50 mg PO BID #60 tabs 07/28/24
spironolactone 25 mg tablet 25 mg PO DAILY #30 tabs 07/28/24
amiodarone 200 mg tablet 200 mg PO DAILY 12/22/24
chwedwqywvjy-ctanhdl-mphex acid 400 mcg-lutein 250 mcg chewable tablet (Centrum Silver) 1 tab PO DAILY 12/22/24
clopidogrel 75 mg tablet 75 mg PO DAILY #90 tabs 12/23/24
nitroglycerin 0.4 mg sublingual tablet 0.4 mg sublingual [id number] PRN chest pain #25 tabs 12/23/24
pantoprazole 40 mg tablet,delayed release 40 mg PO DAILY #90 tabs 12/23/24
Home Medication Changes
new to plavix, protonix, nitro, stopped asa and omeprazole
Pending Results: No
== END 2024-12-23 10:39 | disposition home or self-care (01) ==
LOC: CATH 07:16
PROVIDERS: Nurse Practitioner; Physician Assistant Medical; ATTENDING PHYSICIAN Internal Medicine Cardiovascular Disease; FAMILY PHYSICIAN Internal Medicine; OTHER PHYSICIAN Internal Medicine
DX: Z95.810 Presence of automatic (implantable) cardiac defibrillator (principal); I25.84 Coronary atherosclerosis due to calcified coronary lesion; I11.0 Hypertensive heart disease with heart failure; E11.9 Type 2 diabetes mellitus without complications; I50.32 Chronic diastolic (congestive) heart failure; Z79.01 Long term (current) use of anticoagulants; I47.20 Ventricular tachycardia, unspecified; I07.1 Rheumatic tricuspid insufficiency; I25.10 Atherosclerotic heart disease of native coronary artery without angina pectoris; Z95.5 Presence of coronary angioplasty implant and graft; I48.21 Permanent atrial fibrillation; I47.21 Torsades de pointes; Z79.82 Long term (current) use of aspirin; Z79.02 Long term (current) use of antithrombotics/antiplatelets; Z79.899 Other long term (current) drug therapy; Z79.4 Long term (current) use of insulin
CPT/HCPCS: 92978; 92972; 99152; 99153; 80048; 80061; 82962; 83036; 84484; 85027; 85347; 93005; 93458; C1725; C1753; C1761; C1874; C1894; C9600; Q9967

== ENCOUNTER 2025-01-28 11:20 | Outpatient (RCR) | payer OTHER, SELFPAY ==
[2025-01-13 09:13] LABS: Glucose - Point of Care 110 mg/dl (70-99)
[2025-01-13 09:59] LABS: Glucose - Point of Care 106 mg/dl (70-99)
[2025-01-24 11:10] LABS: Glucose - Point of Care 152 mg/dl (70-99)
[2025-01-24 12:09] LABS: Glucose - Point of Care 117 mg/dl (70-99)
[2025-01-26 10:55] LABS: Glucose - Point of Care 134 mg/dl (70-99)
[2025-01-26 11:55] LABS: Glucose - Point of Care 128 mg/dl (70-99)
[2025-01-28 10:55] LABS: Glucose - Point of Care 155 mg/dl (70-99)
[2025-01-28 11:52] LABS: Glucose - Point of Care 101 mg/dl (70-99)
== END 2025-01-28 23:59 | disposition home or self-care (01) ==
LOC: CRHB 11:20
PROVIDERS: ATTENDING PHYSICIAN Internal Medicine; FAMILY PHYSICIAN Internal Medicine
DX: I25.10 Atherosclerotic heart disease of native coronary artery without angina pectoris (principal); Z95.5 Presence of coronary angioplasty implant and graft
CPT/HCPCS: 82962; G0422; G0423

== ENCOUNTER → 2025-02-01 07:03 | Outpatient (REF) | payer OTHER, SELFPAY | LOC: RAD 07:03 | PROVIDERS: ATTENDING PHYSICIAN Nurse Practitioner Gerontology; FAMILY PHYSICIAN Internal Medicine; OTHER PHYSICIAN Internal Medicine Gastroenterology | DX: Z79.899 Other long term (current) drug therapy (principal); K70.30 Alcoholic cirrhosis of liver without ascites | CPT/HCPCS: 94727; 94729; 76700; 88738; 94060 ==

== ENCOUNTER 2025-02-25 11:07 | Outpatient (RCR) | payer OTHER, SELFPAY ==
[2025-01-31 11:08] LABS: Glucose - Point of Care 187 mg/dl (70-99)
[2025-01-31 12:01] LABS: Glucose - Point of Care 101 mg/dl (70-99)
[2025-02-02 11:02] LABS: Glucose - Point of Care 163 mg/dl (70-99)
[2025-02-02 11:53] LABS: Glucose - Point of Care 112 mg/dl (70-99)
== END 2025-02-25 23:59 | disposition home or self-care (01) ==
LOC: CRHB 11:07
PROVIDERS: ATTENDING PHYSICIAN Internal Medicine; FAMILY PHYSICIAN Internal Medicine
DX: I25.10 Atherosclerotic heart disease of native coronary artery without angina pectoris (principal); Z95.5 Presence of coronary angioplasty implant and graft
CPT/HCPCS: 82962; G0422; G0423

== ENCOUNTER → 2025-03-05 10:01 | Outpatient (REF) | payer OTHER, SELFPAY | LOC: RAD 10:01 | PROVIDERS: ATTENDING PHYSICIAN Internal Medicine; FAMILY PHYSICIAN Internal Medicine | DX: J98.4 Other disorders of lung (principal) | CPT/HCPCS: 71250 ==

== ENCOUNTER 2025-03-25 10:45 | Emergency (ER) | payer OTHER, SELFPAY ==
[2025-03-25 12:13] VITALS: BP 112/71
[2025-03-25 12:17] VITALS: BP 116/78
[2025-03-25 12:20] VITALS: BP 115/76
[2025-03-25 12:39] VITALS: BMI 30.8
[2025-03-25 12:47] VITALS: BP 112/71; BP 115/76; BP 116/78; PULSE 85; PULSE 88; PULSE 91
[2025-03-25 12:48] LABS: % Basophils 0.5 % (0-2); % Eosinophils 2.2 % (0-6); % Immature Granulocytes 0.3 % (0-0.5); % Lymphocytes 19.4 % (20.5-51.1); % Neutrophils 67.6 % (42.2-75.2); Absolute Eosinophils 0.1 10^3/uL (0-0.7); Absolute Lymphocytes 0.7 10^3/uL (1.2-3.4); Absolute Monocytes 0.4 10^3/uL (0.1-0.6); Absolute Neutrophils 2.5 10^3/uL (1.4-6.5); Hematocrit 39.3 % (39.0-52.0); Hemoglobin 13.3 g/dL (13.0-18.0); Mean Corp Hgb Conc. 33.8 g/dL (33.0-37.0); Mean Corpuscular Hgb 32.4 pg (27.0-31.0); Mean Corpuscular Volume 95.9 fL (80.0-94.0); Mean Platelet Volume 10.6 fL (7.4-10.4); Nucleated Red Blood Cells % 0 % (-); Platelet Count 96 10^3/uL (130-400); Red Cell Dist. Width 14.6 % (11.5-14.5); White Blood Cell Count 3.7 10^3/uL (4.8-10.8)
[2025-03-25 13:00] VITALS: BP 106/70
[2025-03-25 13:02] LABS: ALT (SGPT) 26 U/L (0-50); AST (SGOT) 37 U/L (17-59); Albumin 3.8 g/dl (3.5-5.0); Alkaline Phosphatase 78 U/L (38-126); Blood Urea Nitrogen 26 mg/dl (9-20); Calcium 9.2 mg/dl (8.4-10.2); Carbon Dioxide 29 mmol/L (22-30); Chloride 105 mmol/L (98-107); Estimated Creatinine Clearance 53 ml/min; Glucose 149 mg/dl (70-99); Potassium 3.9 mmol/L (3.5-5.1); Sodium 142 mmol/L (135-145); Total Bilirubin 1.4 mg/dl (0.2-1.3); Total Protein 6.6 g/dl (6.3-8.2); eGFR 56.93
[2025-03-25 13:14] LABS: Troponin I < 0.012 ng/ml
--- NOTE | 2025-03-25 13:37 | ED.GENMED ---
History of Present Illness
General
Chief Complaint: Chest Pain
Time Seen by Provider: 03/25/25 12:20
History of Present Illness
History of Present Illness:
74-year-old male with history of aortic stenosis, CHF, hypertension, hyperlipidemia, coronary artery disease, and COPD presents to the emergency department for evaluation of left lower chest discomfort that began while bending forward to apply
lotion to his legs earlier today. Pain lasted for several hours before resolving. He did take several doses of nitroglycerin that did not seem to provide any benefit. No associated fevers or chills. At this time he is asymptomatic. Last had a
heart cath with intervention performed in December.
Past History
Past History
ED Past Medical History: Arrthythmia, CVA, HTN, Hypercholesterolemia and IDDM
ED Past Surgical History: Cardiac, Orthopedic and Tonsilectomy
Social History
Tobacco: Former smoker
Alcohol: Daily
Drug: None
Personal:
Living: with family
Family History
Family History: Other
Review of Systems
Review of Systems
Allergies reviewed?: Yes
All Other Systems: ROS reviewed and negative except as documented in HPI and ROS
Phy Exam
Physical Exam
Physical Exam:
GEN: Well appearing, NAD, WDWN
HEENT: Oral mucosa moist, no scleral icterus
Cardiac: Regular rate and rhythm, no murmurs
Lung: No respiratory distress, no tachypnea, lungs clear to auscultation
MSK: No gross deformity or injuries
Skin: Good color, no pallor or jaundice, no rashes
Neuro: AO x3, moves all extremities freely
Psych: Calm, cooperative
Scores
Heart Score for Chest Pain Patients
STEMI patient?: No
History: Slightly or Non-Suspicious
ECG: Normal
Age: >/= 65 years
Risk Factors: >/= 3 Risk Factors or History of CAD
Troponin: </= Normal Limit
Heart Score for Chest Pain Patients: 4
Heart Score Risk: 20.3% MACE over next 6 weeks
Course
Orders/Labs/Results
Orders:
Orders
03/25/25 10:45
EKG [Electrocardiogram (*1)] Urgent
Reason for Study: Chest Pain
03/25/25 10:46
EKG- Treatment ONCE
03/25/25 12:31
CR Chest - 2 Views Urgent
Comment:
Reason For Exam: chest pain
03/25/25 12:40
Complete Blood Count/With Diff Urgent
Comprehensive Metabolic Panel Urgent
Troponin I Urgent
Abnormal Lab Results
03/25/25
12:40
WBC 3.7 L 10^3/uL
(4.8-10.8)
RBC 4.10 L 10^6/uL
(4.70-6.10)
MCV 95.9 H fL
(80.0-94.0)
MCH 32.4 H pg
(27.0-31.0)
RDW 14.6 H %
(11.5-14.5)
Plt Count 96 L 10^3/uL
(130-400)
MPV 10.6 H fL
(7.4-10.4)
Absolute Lymphs (auto) 0.7 L 10^3/uL
(1.2-3.4)
Lymphocytes % 19.4 L %
(20.5-51.1)
Monocytes % 10.0 H %
(1.7-9.3)
BUN 26 H mg/dl
(9-20)
Glucose 149 H mg/dl
(70-99)
Total Bilirubin 1.4 H mg/dl
(0.2-1.3)
03/25/25 12:40
03/25/25 12:40
Vital Signs
Initial and Last Documented VS:
Initial Vital Signs
Pulse Resp BP Pulse Ox
88 14 112/71 98
03/25/25 12:13 03/25/25 12:13 03/25/25 12:13 03/25/25 12:13
Last Documented Vital Signs
Pulse Resp BP Pulse Ox
78 14 106/70 96
03/25/25 13:30 03/25/25 13:30 03/25/25 13:00 03/25/25 13:30
MDM/Problems Addressed
MDM/Problems Addressed:
Patient remained pain-free in the emergency department. EKG is paced, his troponin is negative and cardiac device interrogation shows no events. Unlikely cardiac in nature given that it began with position and did not resolve with nitroglycerin
*Critical Care Note
Total Time (30-74mins, 75-104mins- exclusive of procedures): Not Applicable
ED Attending Note
-
Portions of this chart may have been created with voice recognition software.� Occasional wrong word or��sound alike� substitutions may have occurred due to the inherent limitations of voice recognition software.
Discharge Plan
Departure
Patient Disposition: Home (Routine Discharge)
Date of Disposition: 03/25/25
Time of Disposition: 13:38
Patient with high blood pressure during this ER visit?: No
Discharge Problem:
Atypical chest pain
Instructions: Chest Pain CBC Follow Up
Prescriptions:
No Action
tamsulosin 0.4 MG capsule
0.4 mg PO DAILY
insulin glargine [Lantus U-100 Insulin] 100 unit/mL Solution
28 unit SC HS Qty: 0
loratadine [Claritin] 10 mg Tablet
10 mg PO DAILY Qty: 0
omega-3 fatty acids Capsule
1,000 mg PO DAILY Qty: 0
insulin aspart U-100 [Novolog FlexPen U-100 Insulin] 300 UNITS/3 ML insulin pen
6 units SC AC Qty: 1 0RF
Eliquis 5 mg Tablet
5 mg PO BID
Jardiance 25 mg Tablet
12.5 mg PO DAILY
diphenhydramine-acetaminophen [Tylenol PM Extra Strength] 25-500 mg Tablet
2 tab PO HS
flaxseed oil 1,000 mg Capsule
3,000 mg PO HS
Glucosamine Sulf-Chondroitin 500-400 mg Capsule
1 cap PO DAILY
furosemide 40 mg Tablet
40 mg PO BID AT 0800,1600 Qty: 60 0RF
metolazone 2.5 mg Tablet
2.5 mg PO [id number] PRN (Reason: weight gain > 3 lbs) Qty: 30 0RF
metoprolol succinate 50 mg Tablet Extended Release 24 Hr
50 mg PO BID Qty: 60 0RF
spironolactone 25 mg Tablet
25 mg PO DAILY Qty: 30 0RF
Centrum Silver 400-250 mcg Tablet,Chewable
1 tab PO DAILY
amiodarone 200 mg tablet
200 mg PO DAILY
clopidogrel 75 mg Tablet
75 mg PO DAILY Qty: 90 5RF
pantoprazole 40 mg Tablet,Delayed Release (Dr/Ec)
40 mg PO DAILY Qty: 90 5RF
nitroglycerin 0.4 mg tablet, sublingual
0.4 mg sublingual [id number] PRN (Reason: chest pain) Qty: 25 5RF
Referrals:
Saud Means DO [Family Provider] -
Interventions
Interventions:
*Risk Screen - Suicide Last Done: 03/25/25 13:31
*General Assessment Last Done: 03/25/25 14:15
*Neglect/Abuse Screening Last Done: 03/25/25 13:31
*ED- Fall Risk Assessment Last Done: 03/25/25 14:15
*ED COVID-19 Vaccine History Last Done: 03/25/25 14:15
*Nursing Disposition Last Done: 03/25/25 14:15
ED- Cardiac Assessment Last Done: 03/25/25 12:46
Discharge Date and Time
Discharge Date/Time: 03/25/25 14:16
Print Language: ICELANDIC
== END 2025-03-25 14:16 | disposition home or self-care (01) ==
LOC: EMR 10:45
PROVIDERS: Physician Assistant; EMERGENCY PHYSICIAN Student in an Organized Health Care Education/Training Program; FAMILY PHYSICIAN Internal Medicine
DX: R07.89 Other chest pain (principal); I11.0 Hypertensive heart disease with heart failure; I50.9 Heart failure, unspecified; I35.0 Nonrheumatic aortic (valve) stenosis; E78.00 Pure hypercholesterolemia, unspecified; I25.10 Atherosclerotic heart disease of native coronary artery without angina pectoris; E11.9 Type 2 diabetes mellitus without complications; J44.9 Chronic obstructive pulmonary disease, unspecified; Z86.73 Personal history of transient ischemic attack (TIA), and cerebral infarction without residual deficits; Z87.891 Personal history of nicotine dependence
CPT/HCPCS: 99283; 71046; 80053; 84484; 85025; 93005

== ENCOUNTER 2025-03-30 11:32 | Outpatient (RCR) | payer OTHER, SELFPAY | END 2025-03-30 23:59 | disposition home or self-care (01) | LOC: CRHB 11:32 | PROVIDERS: ATTENDING PHYSICIAN Internal Medicine; FAMILY PHYSICIAN Internal Medicine | DX: I25.10 Atherosclerotic heart disease of native coronary artery without angina pectoris (principal); Z95.5 Presence of coronary angioplasty implant and graft | CPT/HCPCS: G0422; G0423 ==

== ENCOUNTER → 2025-04-13 14:27 | Outpatient (RCR) | payer OTHER, SELFPAY | END | disposition home or self-care (01) | LOC: CRHB 14:27 | PROVIDERS: ATTENDING PHYSICIAN Internal Medicine; FAMILY PHYSICIAN Internal Medicine | DX: I25.10 Atherosclerotic heart disease of native coronary artery without angina pectoris (principal); Z95.5 Presence of coronary angioplasty implant and graft | CPT/HCPCS: G0422; G0423 ==

== ENCOUNTER → 2025-08-11 11:08 | Outpatient (REF) | payer OTHER, SELFPAY | LOC: RAD 11:08 | PROVIDERS: ATTENDING PHYSICIAN Internal Medicine Gastroenterology; FAMILY PHYSICIAN Internal Medicine | DX: K70.30 Alcoholic cirrhosis of liver without ascites (principal) | CPT/HCPCS: 76700 ==